=== PATIENT | female | born 1945 | race Caucasian/White ===

== ENCOUNTER → 2020-09-15 12:33 | Outpatient (BNVA) | payer MEDICARE, OTHER, SELFPAY | PROVIDERS: PCP Internal Medicine; Referring Provider Internal Medicine; Visit Provider Internal Medicine Cardiovascular Disease | DX: R55 Syncope and collapse (principal); R00.1 Bradycardia, unspecified | CPT/HCPCS: 93005; 99212 ==

== ENCOUNTER → 2020-11-24 12:54 | Outpatient (BNVA) | payer MEDICARE, OTHER, SELFPAY | PROVIDERS: PCP Internal Medicine; Visit Provider Hospitalist | DX: R91.8 Other nonspecific abnormal finding of lung field (principal); K59.00 Constipation, unspecified | CPT/HCPCS: 99212 ==

== ENCOUNTER → 2021-11-25 11:03 | Outpatient (BNVA) | payer MEDICARE, OTHER, SELFPAY | PROVIDERS: PCP Internal Medicine; Visit Provider Hospitalist | DX: R91.8 Other nonspecific abnormal finding of lung field (principal); L72.9 Follicular cyst of the skin and subcutaneous tissue, unspecified; K44.9 Diaphragmatic hernia without obstruction or gangrene | CPT/HCPCS: 99212 ==

== ENCOUNTER → 2022-09-29 10:33 | Outpatient (BNVA) | payer MEDICARE, OTHER, SELFPAY | PROVIDERS: PCP Internal Medicine; Referring Provider Internal Medicine; Visit Provider Internal Medicine Cardiovascular Disease | DX: R00.1 Bradycardia, unspecified (principal); R55 Syncope and collapse; E78.5 Hyperlipidemia, unspecified | CPT/HCPCS: 93005; 99212 ==

== ENCOUNTER 2022-12-01 11:21 | Outpatient (AMB) | payer MEDICARE, OTHER, SELFPAY ==
--- NOTE | 2022-12-01 11:39 | A.OFFVIS_ITS ---
Intake Vital Signs 12/01/22 11:41 Height 5 ft 3 in Weight 145 lb BMI 25.7 Pulse 63 Pulse Source Pulse Oximeter Pulse Oximetry (%) 97 Oxygen Delivery Method Room Air Intake Visit Reasons: COPD Allergies morphine Allergy (Severe, Verified 12/01/22 11:40) Vomiting Sulfa (Sulfonamide Antibiotics) Allergy (Severe, Verified 12/01/22 11:40) hives aspirin [ASA] Allergy (Intermediate, Verified 12/01/22 11:40) UPSET STOMACH Thimerosal Allergy (Severe, Uncoded 12/01/22 11:40) Vomiting HPI HPI Comments History of Present Illness Details The patient is a 77 y/o woman with underlying pulmonary nodules. Apparently back in May 2019 she was having significant respiratory complaints including cough shortness of breath chest pain. Looking back she thinks she had COVID-19 infection. She did have a CT scan of the chest PE protocol which was negative for any airspace disease. But, did did mention that the right lower lobe pulmonary nodule was slightly increasing size measuring 8 x 10 mm. They recommended repeating the PET scan. She had a repeat CT scan October 16, 2019 demonstrating stability of the right lower lobe pulmonary nodule. We did go back to her previous CT scan even her last PET scan at [facility]. The CT scans in the PET scan personally reviewed by me. The patient to be some waxing waning from the size of the right lower lobe nodular density. It may be how was cut as it is not completely circumferential. That being said has not shown any significant change in size. Also the PET scan was reassuring with no FDG activity. The patient also has a small new pulmonary nodule that will continue to need follow-up. 11/24/2020 the patient is here for a pulmonary follow-up visit. She has been having significant issues lately. Time issues with a disc herniation that required surgical intervention but then she had every herniation and had to have repeat surgery. Now she has been with significant issues after having a hernia surgery done resulting significant constipation irregular bowels. The therefore she is struggling with F. Due to the significant constipation she developed hemorrhoids. She will be following up with her new surgeon regarding the internal hemorrhoids. Her breathing overall has been stable. We did review her recent CT scan of the chest which demonstrated multiple subsolid and ground-glass nodular densities. Patient understands that these nodules have to be monitor for longer period of time based on their description. At this point a CT scan stable will follow-up with a CT in next year unless she develops any worsening respiratory symptoms or any other concerning symptoms of warranted earlier evaluation. The patient is now requiring a respiratory medicines at this time. 11/25/2021 the patient is here for pulmonary follow-up visit. The patient has had a very eventful year. After I saw her back in November of 2020 the patient required surgery for fissures. Subsequently after that she was diagnosed with breast cancer during the pandemic. She did undergo a left breast mastectomy. They would into the right because of the pandemic could have elective surgery. She also had a lymph node dissection that was negative for any spread. She was placed on hormonal therapy but she cannot tolerated. After that the patient developed significant paresthesias and was found to have cervical disc disease. She did require neurosurgical intervention. She underwent surgery without any apparent complications. Now she is recovering from that. Overall she is doing well from a respiratory status. Denies any shortness of breath or cough. She did undergo a repeat CT scan of the chest. It appears that she has both ground- glass nodular densities in solid nodular densities. When compared to last year's the CT scan is stable which is reassuring. In view of the ground-glass nodules which she continue following the nodules further specially now with a history of breast cancer. She also was concerned about a little tag that she has on her right axilla. I did evaluate the CT scan of the chest and did not appear to have any significant lymphadenopathy in the right axilla. She does have a very so much subcutaneous Pea size density which appears to be more worse base uses. If the patient's sees that increase or get more indurated patient is to follow-up with her primary care for her oncologist quickly. She is scheduled to have a mammography sometime in the late fall. 12/01/2022 the the patient is here for pulmonary follow-up visit. Overall the patient is well. Since we last spoke she was diagnosed with recurrent breast cancer and required a mastectomy. She has not on any hormonal or chemotherapy. She is using natural medicine. Respiratory umanzor she is doing well she continues to exercise regularly. She finally recovered from her surgery so she is getting some her energy back. The patient did have a CT scan of the chest in October 2022 and we personally reviewed the CT scan and compared to the CT scan she had from 2021. She does have intermediate sized pulmonary nodules some calcified and some noncalcified. There unchanged for the most part when compared to 202 although the 1 on the left appears to be just a little bit more opaque although same size. Patient will require repeat CT scan in a year's time. PENDING SALE TO [facility] Medical History Constipation Hand paresthesia Hiatal hernia Hyperlipidemia Pulmonary nodule Pulmonary nodules Vasovagal syncope Social History Patient Tobacco Use Status: Never used Tobacco Review of Systems Const Denies night sweats ENT Denies change in voice, Denies lip swelling, Denies mouth pain, Reports nasal congestion, Reports nasal discharge, Reports neck pain and Denies tongue swelling Card Denies chest pain Resp Denies cough GI Reports change in stool character and Reports constipation Musc Denies no additional complaints, Reports back pain, Reports neck pain, Reports numbness and Reports tingling Neuro Denies Neuro-related abnormal movements, Reports numbness, Reports tingling and Reports paresthesias Psych Denies no additional complaints Alan/Lymph Denies easy bleeding and Denies lymphadenopathy Aller/Immun Denies lip swelling and Denies tongue swelling Physical Exam Vital Signs: Last Vital Signs Pulse 63 12/01/22 11:41 Pulse Ox 97 12/01/22 11:41 Oxygen Delivery Method Room Air 12/01/22 11:41 BMI result Body Mass Index 25.7 Const General: alert Neck Neck: Yes normal visual inspection, Yes full ROM and Yes no lymphadenopathy Chest Chest palpation & inspection: normal inspection of the chest Resp Auscultation: diminished lung sounds Cardio Rate: regular rate Rhythm: regular rhythm Heart sounds: S1 normal heart sound present and S2 normal heart sound present GI Palpation (GI): Soft to palpation and nontender Auscultation: normal bowel sounds Skin General skin exam: rashes and/or lesions noted Extrem General: Yes no clubbing, cyanosis or edema Assessment & Plan Assessment & Plan (1) Pulmonary nodules: Code(s): R91.8 - Other nonspecific abnormal finding of lung field (2) Subcutaneous cyst: Code(s): L72.9 - Follicular cyst of the skin and subcutaneous tissue, unspecified (3) Hiatal hernia: Comment: noted on CT Code(s): K44.9 - Diaphragmatic hernia without obstruction or gangrene Plan Repeat CT chest 1 yr reflux diet sleep elevated F/U 1 yr Orders: Orders CT chest wo IV con 10/03/23 R91.8 - Other nonspecific abnormal finding of lung field Coding Level of Care Code Est Pt Level 4 (29683) Diagnoses Pulmonary nodules R91.8 Subcutaneous cyst L72.9 Hiatal hernia K44.9 Time Spent (min) 17
[2022-12-01 11:41] VITALS: PULSE 63; O2SAT 97; BMI 25.7
== END 2022-12-01 11:58 | disposition home or self-care (01) ==
PROVIDERS: PCP Internal Medicine; Visit Provider Hospitalist
DX: R91.8 Other nonspecific abnormal finding of lung field (principal); L72.9 Follicular cyst of the skin and subcutaneous tissue, unspecified; K44.9 Diaphragmatic hernia without obstruction or gangrene
CPT/HCPCS: 99214

== ENCOUNTER → 2022-12-01 11:21 | Outpatient (BNVA) | payer MEDICARE, OTHER, SELFPAY | PROVIDERS: PCP Internal Medicine; Visit Provider Hospitalist | DX: J44.9 Chronic obstructive pulmonary disease, unspecified (principal); R91.8 Other nonspecific abnormal finding of lung field; L72.9 Follicular cyst of the skin and subcutaneous tissue, unspecified; K44.9 Diaphragmatic hernia without obstruction or gangrene | CPT/HCPCS: 99212 ==

== ENCOUNTER 2024-01-30 10:16 | Outpatient (AMB) | payer MEDICARE, OTHER, SELFPAY ==
--- NOTE | 2024-01-30 10:24 | MHC.OFFVIS ---
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 Apparently back in May 2019 she was having significant respiratory complaints including cough shortness of breath chest pain. Looking back she thinks she had COVID-19 infection. She did have a CT scan of the chest PE protocol which was negative for any airspace disease. But, did did mention that the right lower lobe pulmonary nodule was slightly increasing size measuring 8 x 10 mm. They recommended repeating the PET scan. She had a repeat CT scan October 16, 2019 demonstrating stability of the right lower lobe pulmonary nodule. We did go back to her previous CT scan even her last PET scan at [facility]. The CT scans in the PET scan personally reviewed by me. The patient to be some waxing waning from the size of the right lower lobe nodular density. It may be how was cut as it is not completely circumferential. That being said has not shown any significant change in size. Also the PET scan was reassuring with no FDG activity. The patient also has a small new pulmonary nodule that will continue to need follow-up. 11/24/2020 the patient is here for a pulmonary follow-up visit. She has been having significant issues lately. Time issues with a disc herniation that required surgical intervention but then she had every herniation and had to have repeat surgery. Now she has been with significant issues after having a hernia surgery done resulting significant constipation irregular bowels. The therefore she is struggling with F. Due to the significant constipation she developed hemorrhoids. She will be following up with her new surgeon regarding the internal hemorrhoids. Her breathing overall has been stable. We did review her recent CT scan of the chest which demonstrated multiple subsolid and ground-glass nodular densities. Patient understands that these nodules have to be monitor for longer period of time based on their description. At this point a CT scan stable will follow-up with a CT in next year unless she develops any worsening respiratory symptoms or any other concerning symptoms of warranted earlier evaluation. The patient is now requiring a respiratory medicines at this time. 11/25/2021 the patient is here for pulmonary follow-up visit. The patient has had a very eventful year. After I saw her back in November of 2020 the patient required surgery for fissures. Subsequently after that she was diagnosed with breast cancer during the pandemic. She did undergo a left breast mastectomy. They would into the right because of the pandemic could have elective surgery. She also had a lymph node dissection that was negative for any spread. She was placed on hormonal therapy but she cannot tolerated. After that the patient developed significant paresthesias and was found to have cervical disc disease. She did require neurosurgical intervention. She underwent surgery without any apparent complications. Now she is recovering from that. Overall she is doing well from a respiratory status. Denies any shortness of breath or cough. She did undergo a repeat CT scan of the chest. It appears that she has both ground-glass nodular densities in solid nodular densities. When compared to last year's the CT scan is stable which is reassuring. In view of the ground-glass nodules which she continue following the nodules further specially now with a history of breast cancer. She also was concerned about a little tag that she has on her right axilla. I did evaluate the CT scan of the chest and did not appear to have any significant lymphadenopathy in the right axilla. She does have a very so much subcutaneous Pea size density which appears to be more worse base uses. If the patient's sees that increase or get more indurated patient is to follow-up with her primary care for her oncologist quickly. She is scheduled to have a mammography sometime in the late fall. 12/01/2022 the the patient is here for pulmonary follow-up visit. Overall the patient is well. Since we last spoke she was diagnosed with recurrent breast cancer and required a mastectomy. She has not on any hormonal or chemotherapy. She is using natural medicine. Respiratory umanzor she is doing well she continues to exercise regularly. She finally recovered from her surgery so she is getting some her energy back. The patient did have a CT scan of the chest in October 2022 and we personally reviewed the CT scan and compared to the CT scan she had from 2021. She does have intermediate sized pulmonary nodules some calcified and some noncalcified. There unchanged for the most part when compared to 2021 although the 1 on the left appears to be just a little bit more opaque although same size. Patient will require repeat CT scan in a year's time. 01/30/2024 the patient is here for a pulmonary follow-up visit. Overall the patient is doing well. Her respiratory symptoms have been stable. She is recovering from shoulder surgery. Denies any worsening shortness of breath or chest tightness. She does have epigastric discomfort and she does get some reflux symptoms. We did look at her CT scan of the chest demonstrating the hiatal hernia. We did talk about her . She can not take a lot of medications at this time although I do believe Pepcid will be okay based on her medical issues. She is having a lot of reflux symptoms and she should take her medications specially since she is following a reflux diet. As far as changes in her diet she is going to stop the seltzer water and just have regular water instead. Hopefully the Pepcid helps her symptoms. We did review her pulmonary nodules. They appear to be stable when compared to last year. There still about a cm in size which are intermediate and she does have the reason history of breast cancer. Will follow-up with a repeat CT scan in a year's time. If the patient develops any worsening symptoms prior to that she will call for an earlier assessment. [facility] Medical History Constipation Hand paresthesia Hiatal hernia Hyperlipidemia Pulmonary nodule Pulmonary nodules Vasovagal syncope Social History Patient Tobacco Use Status: Never used Tobacco Review of Systems Const Denies night sweats ENT Denies change in voice, Denies lip swelling, Denies mouth pain, Reports nasal congestion, Reports nasal discharge, Reports neck pain and Denies tongue swelling Card Denies chest pain Resp Denies cough GI Reports change in stool character and Reports constipation Musc Denies no additional complaints, Reports back pain, Reports neck pain, Reports numbness and Reports tingling Neuro Denies Neuro-related abnormal movements, Reports numbness, Reports tingling and Reports paresthesias Psych Denies no additional complaints Alan/Lymph Denies easy bleeding and Denies lymphadenopathy Aller/Immun Denies lip swelling and Denies tongue swelling Physical Exam Vital Signs: Last Vital Signs Pulse 55 01/30/24 10:26 BP 124/70 01/30/24 10:26 Pulse Ox 98 01/30/24 10:26 Oxygen Delivery Method Room Air 01/30/24 10:26 BMI result Body Mass Index 26.4 Const General: alert Neck Neck: Yes normal visual inspection, Yes full ROM and Yes no lymphadenopathy Chest Chest palpation & inspection: normal inspection of the chest Resp Auscultation: diminished lung sounds Cardio Rate: regular rate Rhythm: regular rhythm Heart sounds: S1 normal heart sound present and S2 normal heart sound present GI Palpation (GI): Soft to palpation and nontender Auscultation: normal bowel sounds Skin General skin exam: rashes and/or lesions noted Extrem General: Yes no clubbing, cyanosis or edema Assessment & Plan Assessment & Plan (1) Pulmonary nodules: Code(s): R91.8 - Other nonspecific abnormal finding of lung field Category: Medical (2) Hiatal hernia: Comment: noted on CT Code(s): K44.9 - Diaphragmatic hernia without obstruction or gangrene Category: Medical Plan Repeat CT chest 1 yr reflux diet sleep elevated trial Pepcid should f/u with GI F/U 1 yr Orders: Orders CT chest wo IV con 1 Year R91.8 - Other nonspecific abnormal finding of lung field Medications: New famotidine (Pepcid) 40 mg PO DAILY 30 days 30 tabs 11RF Coding Level of Care Code Est Pt Level 4 (22557) Diagnoses Pulmonary nodules R91.8 Hiatal hernia K44.9 Time Spent (min) 17
[2024-01-30 10:26] VITALS: BP 124/70; PULSE 55; O2SAT 98; BMI 26.4
== END 2024-01-30 10:58 | disposition home or self-care (01) ==
PROVIDERS: PCP Internal Medicine; Visit Provider Hospitalist
DX: R91.8 Other nonspecific abnormal finding of lung field (principal); K44.9 Diaphragmatic hernia without obstruction or gangrene
CPT/HCPCS: 99214

== ENCOUNTER → 2024-01-30 10:16 | Outpatient (BNVA) | payer MEDICARE, OTHER, SELFPAY | PROVIDERS: PCP Internal Medicine; Visit Provider Hospitalist | DX: R91.8 Other nonspecific abnormal finding of lung field (principal); K44.9 Diaphragmatic hernia without obstruction or gangrene | CPT/HCPCS: 99212 ==

== ENCOUNTER 2024-10-04 15:03 | Outpatient (AMB) | payer MEDICARE, OTHER, SELFPAY ==
--- OUTSIDE RECORDS SUMMARY | 2024-10-04 15:06 | XMS_ITS | Patient Health Record ---
Author Organization [facility] [place] Address [address] [place] [address] Care Team Providers Care Puppy Sitter Name Role Phone Keaton Leigh MD Primary Care Provider Unavail able Black, Cristine Unavailable [phone] Allergies Allergen (clinical drug ingredient) Drug/Non Drug Allergy documented on EMR Reaction Allergy Type Onset Date Status ibuprofen Advil Unknown Drug Allergy Active Aleve Unknown Drug Allergy Active Motrin Unknown Drug Allergy Active sulfa Unknown Drug Allergy Active acetaminophen / oxycodone Percocet Unknown Drug Allergy Active Reason For Referral No Information Medications Medication SIG (Take, Route, Frequency, Duration) Notes Start Date End Date Status Atenolol Active ibuprofen Active Physical Therapy . . . 2-3x/week; Durat ion: 3-4 weeks Active LORazepam Active Azithromycin Not-Robin ing Levothyroxine Sodium Active Percocet 5-325 MG 1 tablet as needed O rally every 6 hrs 01/21/2014 Not-Taking Physical Therapy . . . 2-3x/week; Durat ion: 3-4 weeks 03/18/2014 Active Vicodin Active Tylenol Not-Taking Laxative Active Colace Active DHEA Active Aspir-81 Active Social History Tobacco use other than smoking: Question Answer Notes Are you an other tobacco user? No Problems Problem Type SNOMED Code ICD Code Onset Dates Problem Status W/U Status Risk Notes Problem Pain in limb (16767673) Pain in Limb (729.5) Active confirmed Problem Edema (54498400) Edema (782.3) Active confirmed Problem Hallux valgus (248547999) Hallux Valgus (735.0) Active confirmed Problem Hammer toe (402940146) Hammer toe (735.4) Active confirmed Problem Stress fracture (52282800) Stress fx (733.94) Active confirmed Plan Of Treatment Pending Test Test Name Order Date Tc99 3 phase Bone Scan 12/11/2013 X ray : Foot, left 3V 02/18/2014 26036, [id number]/INJECT, JOINT/BURSA 0 12/17/2013 Insurance Providers Payer Name Payer Address Payer Phone Subscriber Number Group Number Insured Name Patient Relationship to Insured Coverage Start Date Coverage End Date Medicare National [employer] [address] [place] [id number] Tanesha Dejesus Self - patient is the insured Gervais Grant [address] [place] [phone] [id number] Tanesha Dejesus Self - patient is the insured Medical (General) History Medical History History ICD Code Arthritis Back,Hip,and Knee pain Cancer Hiatal hernia Osteoporosis Reflux Thyroid cancer Measles Mumps Chicken pox Surgical History Surgery Date(Month/Year) tonsils 195 D&C 1965,1968,02/1975,1975 hernia repair 03/1975,10/1975,,05/2010 partial hysterectomy 07/1975 hysterectomy 02/1978 gallbladder 09/1979 hemorrhoidectomy 11/1981,10/2008 right foot neuroma removal 11/1985 myelogram 08/1987 thyroidectomy 06/1994 partial bilateral mastectomy 05/1999 right shoulder rotater cuff 08/2004 rectocel 01/2009 colon resection/prolapsed rectum 11/2009 incision repair 02/2010 panniculectomy 05/2010 Bun/HT/Tent/Caps left 02/13/2014 Hospitalization History Reason Date(Month/Year) [facility] bunion& HT 02/13/14
--- OUTSIDE RECORDS SUMMARY | 2024-10-04 15:07 | XMS_ITS | Clinical Summary ---
Author Organization [facility] Address [address] [place] [address] Care Team Providers Care Abrasive Sawyer Name Role Phone Keaton Leigh MD Primary Care Provider + [phone] Social History Tobacco Use Types Packs/Day Years Used Date Smoking Tobacco: Never Assessed Sex and Gender Information Value Date Recorded Sex Assigned at Not on file Gender Identity Not on file Sexual Orientation Not on file Job Start Date Occupation Industry Not on file Not on file Not on file Plan of Treatment Health Maintenance Due Date Last Done Comments Hepatitis C Screening 1945 COVID-19 Vaccine (#1) 02/06/1946 Depression Screening 1958 Preventative Health Evaluation 1964 DTap / Tdap / Td (1 - Tdap) 1965 Shingrix-Zoster Vaccine (1 of 2) 1996 Fall Risk Assessment 08/07/2011 Osteoporosis Screening (DEXA Scan) 08/07/2011 Pneumococcal Vaccine (1 of 1 - PCV) 08/07/2011 RSV Adult > 60+ Yrs or Pregn ant (1 - 1-dose 75+ series) 2021 Influenza Vaccine (Season Ended) 2024 Hepatitis B Vaccines Aged Out No long er eligible based on patient's age to complete this topic RSV Ped < 20 months Aged Out No longe r eligible based on patient's age to complete this topic Care Teams Abrasive Sawyer Relationship Specialty Start Date End Date Keaton Leigh MD [address] [address] PCP - General Internal Medicine 02/04/20
--- OUTSIDE RECORDS SUMMARY | 2024-10-04 15:07 | XMS_ITS | Data Portability ---
Author Organization [facility] Address [address] [place] [address] Care Team Providers Care Commutator Repairer Name Role Phone GIA ALVARADO Primary Care Provider Assessment No assessment recorded. Plan of Treatment Reminders Order Date Submit Date Provider Last Modified By Organization Details Last Modified Time Details Appointments None recorded. Lab None recorded. Referral None recorded. Procedures None recorded. Surgeries None recorded. Imaging XR, shoulder, 2 or more view - R rTSA 3 view 216 2024 025 [facility], [address], [address], [place], [address], 5 12:38:22 XR, shoulder, 2 or more view - Right shoulder rTSA sx 3 view rm 214 2023 024 [facility], [address], [address], [place], [address], 4 10:55:55 XR, shoulder, 2 or more view - Right rTSA 3 view 214 2023 024 [facility] [address], [address], [place], [address], 4 16:03:42 Medication Orders None recorded. Patient TargetsNo targets recorded. Patient InstructionsNo instructions recorded. Reason for Referral None Reported. Results Created Date Observation Date Name Description Value Unit Range Abnormal Flag Note LastModifiedBy Organization Detail LastModifiedTime 11/25/1911/25/2023 XR, shoul taty, 2 or more view [email or web address] ?Encry pted=s hAaTro YD8dLq bEUv6g %2BXZw aYqtaq 0bqfl% 2Fg9IQ a4ajBk vP9nXo QUaueC m3YtLR FvZlgJ JJ8mAn HZtai3 1o9586 AC0Kra X%2BEU aTeUC8 mr84%3 D INTERFACE [facility] [address], [place], [address], 11/25/2023 14:11:36 11/25/19 24 11/25/2023 XR, amarilys taty, 2 or more view http:/ [email or web address] ?Encry pted=s hAaTro YD8dLq bEUv6g %2BXZw aYqtaq 0bqfl% 2Fg9IQ a4ajBk vP9nXo QUaueC m3YtLR FvZl [facility] 8l2119 AC0Kra X%2BEU aTeUC8 mr84%3 D INTERFACE [facility] [address], [place], [address], 11/25/2023 14:11:37 01/09/20 24 01/09/2024 XRamarilys, 2 or more view [email or web address]:/ [email or web address] ?Encry pted=s hAaTro YD8dLq bEUv6g %2BXZw aYqtaq 0bqfl% 2Fg9IQ a4ajBk vP9nXo QUaueC m3YtLR FvZlg JJ8[place] HZtai3 1b2609 AC0Kqa nWDUaS nKiQtr MwF INTERFACE [facility] [address], [place], [address], 01/09/2024 14:53:44 01/09/20 24 01/09/2024 XR, amarilys posey, 2 or more view http:/ [email or web address] ?Encry pted=s hAaTro YD8dLq bEUv6g %2BXZw aYqtaq 0bqfl% 2Fg9IQ a4ajBk vP9nXo QUaueC m3YtLR FvZlgJ JJ8mAn HZtai3 3l1010 AC0Kqa nWDUaS nKiQtr MwF INTERFACE [facility] [address], [place], [address], 01/09/2024 14:53:46 08/14/19 25 08/13/2024 XR, shoul taty, 2 or more view [email or web address] ?Encry pted=s hAaTro YD8dLq bEUv6g %2BXZw aYqtaq 0bqfl% 2Fg9IQ a4ajBk vP9nXo QUaueC m3YtLR FvZl JJ8[place] HZtai3 8l0265 AC0Kla nyEUaq kKiQtr MwF INTERFACE [facility] [address], [place], [address], 08/13/2024 13:05:36 08/14/19 25 08/13/2024 XR, shoul taty, 2 or more view http:/ [email or web address] ?Encry pted=s hAaTro YD8dLq bEUv6g %2BXZw aYqtaq 0bqfl% 2Fg9IQ a4ajBk vP9nXo QUaueC m3YtLR FvZlg JJ8mAn HZtai3 8d9317 AC0Kla nyEUaq kKiQtr MwF INTERFACE [facility] [address], [place], [address], 08/13/2024 13:05:37 Result Notes Documentation Provider Name and Address Organization Details Recorded Time Xr, Shoulder, 2 Or More View : [email or web address] Encrypted=qfMwJonOV6uRswJ Uv6g%6PTMkwNsrlr6raif%2Fg 0VKv0apIhzR3tCcRFotbYk2Ig SKEzMnaNLE0fEiYOssj96q431 6CM1CyqS%4TQUnQpQF2lv89%3 D Not Available [facility] 11/25/2023 14:11:36 Xr, Shoulder, 2 Or More View : [email or web address] Encrypted=zeRwYsoJU3rNseO Uv6g%1JFTnsVqins2wozr%2Fg 2JUg7lwOyjP6zTaYKfoqXs3Al YYFmVecITE8tIgCFlko13x229 3AZ7QfeA%2FIYhXkMI8yb58%3 D Not Available [facility] 11/25/2023 14:11:38 Xr, Shoulder, 2 Or More View : [email or web address] Encrypted=scSsDhyGC5aQeqJ Uv6g%7SWTipRwxfs2rqyc%2Fg 3MJh9pzMbeB9yWzGRslfQt7Xv JJErDvrOGP6zYfKWjjt26m245 5NO9VpaxHELjBjPeRzhEbG Not Available [facility] 01/09/2024 14:53: 44 Xr, Shoulder, 2 Or More View : [email or web address]? Encrypted=wdOgUnoMB1zNnjK Uv6g%3VIAztBrbur1bqrm%2Fg 3ZRy4mpFyyS0jGhDIvwfOr1Sm IMWvSgqARI4iSjLOjyh13x980 3XF5WhrmDHAtVwWdVftTeW Not Available [facility] 01/09/2024 14:53: 47 Xr, Shoulder, 2 Or More View : [email or web address] Encrypted=lrQpOmgAA2eBurM Uv6g%9LHSvcSotnk4tgfz%2Fg 9ZCo0nnYgjD0gAqLLfsdQz5Jj SHBmFweTLQ2qJgMYwtv16z996 0JN3QxlnaTWkprEqUvxPrV Not Available [facility] 08/13/2024 13:05: 36 Xr, Shoulder, 2 Or More View : [email or web address] Encrypted=gmFtXuuZA2cMezS Uv6g%7ILLfkZjrox4zlst%2Fg 9GMs5uwKrtU6sRzIStmhFt8Rm TCBwInvEUQ6yOoTYkej12k595 6XB1OhycxPLdleQdBayUqG Not Available [facility] 08/13/2024 13:05: 37 Problems Name Problem SNOMED Code Status Onset Date Resolution Date Notes Provider Name and Address Organization Details Recorded Time No complaints 330097716 Active Status : 'I'; Not Available [facility] 09:10:30 Problem Notes None recorded. 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 Procedure Notes None recorded. Medical Equipment None Reported. Allergies Allergen ID Allergen Name Allergen Category Reaction Reaction Severity Criticality Documentation Date Start Date Code Code System Note Provider Name and Address Organization Details Recorded Time 672283 cow milk allergeni c extract food,medi cation Not available Not available Not available 07/18/2023 36081 5 RxNorm LISBETH KELLER [facility] 4 16:43:01 773796 Substance with sulfonami de structure and antibacte rial mechanism of action (substanc e) medicatio n Not available Not available Not available 07/18/2023 95194 8003 SNOMED LISBETH KELLER [facility] 4 16:43:04 811678 scallop allergeni c extract food Not available Not available Not available 07/18/2023 [address] [facility] 4 16:43:13 083601 morphine medicatio n Not available Not available Not available 07/18/2023 7052 RxNorm LISBETH beck [place] [facility] [place] 16:43:17 Medications Name Sig Start Date Stop Date Status Note LastModified by Organization Details LastModified Time celecoxib 200 mg capsule TAKE 1 CAPSULE BY MOUTH EVERY DAY active Not Available Not Available No t Available aspirin 325 mg tablet TAKE 1 TABLET BY MOUTH EVERY DAY FOR 14 DAYS active Not Available Not Available No t Available ibuprofen 800 mg tablet TAKE 1 TABLET BY MOUTH 3 TIMES A DAY NEEDED FOR PAIN active Not Available Not Available No t Available famotidine 40 mg tablet TAKE 1 TABLET BY MOUTH EVERY DAY active Not Available Not Available No t Available acetaminoph en 500 mg tablet TAKE 2 TABLETS BY MOUTH 3 TIMES A DAY active Not Available Not Available No t Available amoxicillin 500 mg tablet TAKE 4 TABLETS 1 HOUR BEFORE PROCEDURE 11/24 completed Not Available Not Available Not Available ketorolac 0.5 % eye drops PLEASE SEE ATTACHED FOR DETAILED DIRECTION S active Not Available Not Available No t Available cefadroxil 500 mg capsule TAKE 4 PILLS ONE HOUR PRIOR TO FOOT SURGERY DIRECTED active Not Available Not Available No t Available levothyroxi ne 100 mcg tablet TAKE 1 TABLET BY MOUTH 6 DAYS A WEEK AND SKIP THE 7TH DAY active Not Available Not Available No t Available amoxicillin 875 mg tablet TAKE 1 TABLET BY MOUTH TWICE A DAY 11/24 completed Not Available Not Available Not Available hydromorpho ne 2 mg tablet Take 1 tablet every 4 hours by oral route. 08/17 completed Not Available Not Available Not Available dexamethaso ne 1 mg tablet TAKE 1 TABLET BY MOUTH AT 11PM active Not Available Not Available No t Available cephalexin 500 mg capsule TAKE 4 CAPSULES 30 MIN PRIOR TO SURGERY 08/13 completed Not Available Not Available Not Available docusate sodium 100 mg capsule TAKE 1 CAPSULE BY MOUTH EVERY DAY NEEDED 08/13 completed Not Available Not Available Not Available gabapentin 300 mg capsule TAKE 1 CAPSULE BY MOUTH THREE TIMES A DAY active Not Available Not Available No t Available gabapentin 100 mg capsule TAKE 1 CAPSULE BY MOUTH THREE TIMES A DAY 08/13 completed Not Available Not Available Not Available hydromorpho ne 4 mg tablet Take 0.5 tablets every 4 hours by oral route as needed for 7 days, for severe pain. 08/22 completed Not Available Not Available Not Available atenolol 50 mg tablet TAKE 1/2 TABLET BY MOUTH EVERY DAY active Not Available Not Available No t Available hydromorpho ne 1 mg/mL oral liquid TAKE 2 ML BY MOUTH EVERY 4 HOURS NEEDED FOR SEVERE PAIN 08/13 completed Not Available Not Available Not Available Vitals Date Recorded Body height Body mass index (BMI) Body weight Provider Name and Address Organization Details Last Updated DateTime 08/13/2024 157.48 cm 26.9 kg/m2 45663.08 g LISBETH KELLER [facility] 08/13/2024 12:58:13 Date Recorded Body height Body mass index (BMI) Body weight Provider Name and Address Organization Details Last Updated DateTime 11/25/2023 157.48 cm 26.9 kg/m2 36142.08 g LISBETH KELLER [facility] 11/25/2023 13:59:33 Date Recorded Body height Body mass index (BMI) Body weight Provider Name and Address Organization Details Last Updated DateTime 12/12/2023 157.48 cm 26.9 kg/m2 08648.08 g LISBETH KELLER [facility] 12/12/2023 15:40:26 Date Recorded Body height Body mass index (BMI) Body weight Provider Name and Address Organization Details Last Updated DateTime 01/09/2024 157.48 cm 26.9 kg/m2 53506.08 g LISBETH KELLER [facility] 01/09/2024 14:47:12 Date Recorded Body height Body mass index (BMI) Body weight Provider Name and Address Organization Details Last Updated DateTime 02/20/2024 157.48 cm 26.9 kg/m2 76712.08 g LISBETH KELLER [facility] 02/20/2024 15:27:49 Social History None recorded. Functional Status None recorded. Mental Status None recorded. Family History Nothing Reported. Medical History Condition Response Allergies/Hayfever N Coronary Artery Disease N Anxiety/Depression N Breathing or lung disorders N Emphysema N Nerve Disorders N Thyroid Problems Y COPD N Pacemaker N Anemia N Kidney/Bladder Problems N Vascular Disease N Heart Trouble N Heart Attack (MS) N Gastrointestinal Disease Y Cholesterol N Diabetes N Autoimmune disease N Inflammatory Joint disease N Bleeding Disorder N Orthotics N Arthritis Y Seizures/Epilepsy N Blood Clot N AIDS/HIV N Congestive Heart Failure (CHF) N Acid Reflux (GERD) N Cancer Y Stroke N Asthma N Circulation Problems N Peripheral Vascular Disease N Sleep Apnea N Hepatitis N Heart Disease N Rheumatoid Arthritis N Arrhythmia N Pulmonary Embolism N Headaches N Fibromyalgia N Hypertension N Osteoporosis N Gynecological HistoryNo gynecological history recorded. Obstetrics History GPAL:G 0 P 0 0 0 0 Past Encounters Encounter ID Performer Location Encounter Start Date Encounter Closed Date Diagnosis/Indication Diagnosis SNOMED-CT Code Diagnosis ICD10 Code Diagnosis Note [id number] MD Jordyn Hull [address] [place] [address] [address] [place] [address] 07/20/2023 14:00:39 08/01/2023 07:57:21 Rupture of rotator cuff of right shoulder 5718715772 8460406 M75.121 Osteoarthr itis of right glenohumeral joint 7474852383 043799 M19.055 [id number] MD Jordyn Hull [address] [place] [address] [address] [place] [address] 09/05/2023 12:55:01 09/14/2023 07:47:07 History of reverse prosthetic total arthroplasty of right shoulder 2593539167 7606741 Z96.302 [id number] LIDIA Jones [address] [place] [address] [address] [place] [address] 10/10/2023 12:51:06 10/10/2023 13:40:19 Postoperative care 436445137 Z48.89 [id number] MD Jordyn Hull [address] [place] [address] [address] [place] [address] 11/25/2023 13:43:35 12/20/2023 16:03:42 History of reverse prosthetic total arthroplasty of right shoulder 5696335742 5301910 Z96.275 [id number] MD Jordyn Hull [address] [place] [address] [address] [place] [address] 12/12/2023 14:46:28 01/03/2024 15:44:52 History of reverse prosthetic total arthroplasty of right shoulder 9626539007 5148476 Z96.806 [id number] MD Jordyn Hull [address] [place] [address] 01/09/2024 14:07:08 02/03/2024 10:55:55 History of reverse prosthetic total arthroplasty of right shoulder 1870123277 6265727 Z96.545 [id number] MD Jordyn Hull [address] [place] [address] 02/20/2024 14:43:47 03/21/2024 08:26:54 History of artificial joint 505079579 Z96.660 [id number] Kristina Lau MD [facility] [address] [place] [address] 08/13/2024 12:42:41 08/21/2024 12:38:22 History of reverse prosthetic total arthroplasty of right shoulder 6212419208 8659943 Z96.611 Health Concerns Section Related Observation LastModified by Organization Detai ls LastModified Time None Recorded Concern Status LastModified by Organization Details LastModified Time None Recorded Advance Directives Directive None Recorded Payers Insurance Date Sequence Insurance Name Policy Number Policy Dunham Covered Member ID Dunham Member ID Guarantor Name 08/13/2024 1 [place] [employer]MENT [employer] Tanesha Dejesus [id number] Tanesha Dejesus 08/21/2024 2 [employer] (MEDICARE SUPPLEMENT) Tanesha Dejesus [id number] Tanesha Dejesus 08/10/2024 [place] - SPECIALITY CLAIMS (MEDICARE DME REGION A) Tanesha Dejesus [id number] 1 Tanesha Dejesus 10/28/2023 2 UNSPECIFIED REMIT PAYOR Tanesha Dejesus Notes Date Note Type Note Provider Name and Address Organization Details Recorded Time 11/25/2023 text/html Surgery: Right shoulder bioRSA, 08/23/2023 Interval History: Tanesha returns today in follow-up now 3 months out from surgery as above. Comes in today for slightly earlier than expected visit citing new pain in her shoulder during PT on 11/20/2023. Was doing some stretching with her therapist when she felt a sudden pain in the shoulder. This pain is felt primarily over the anterior aspect of the shoulder. She has pain with any motion of the arm, or even elbow flexion. Denies crepitus. No issues with her incision. No numbness or tingling in the arm or hand. Past family, medical, social history and review of systems have been reviewed and updated on the medical history sheet saved to the patient's chart. A 12-point review of systems is negative x12 except as noted above and/or on the medical history sheet. Examination: Pleasant 78-year-old woman in no acute distress. On exam of the Right upper extremity, incision is healing nicely. Mild tenderness to palpation over the superior shoulder/acromion, more so over the conjoined tendon, lesser tuberosity. Able to maintain the shoulder abducted against gravity with mild discomfort difficulty. Does not tolerate active range of motion of the shoulder today. Passive external rotation is to 30 degrees before we have to stop due to discomfort. Passive forward elevation to at least 90 degrees with minimal pain. Pain, no weakness with bringing hands to mouth, more comfortable with keeping the arm closely against her side Right. Sensation intact in an axillary distribution. Fires EPL, FPL and intrinsics. Hand is warm and well perfused. Imaginv of the Right shoulder ordered and obtained at [facility] today were reviewed during the visit. These demonstrate a reduced glenohumeral joint. Central post and all peripheral screws have excellent purchase within the glenoid vault. Good apposition between baseplate and king salmon glenoid. No evidence for scapular fracture, glenoid notching, or component loosening. No obvious acromial fracture. Impression: 78-year-old tdmxv-ccgm-qghvupgx woman, now 3 months out from surgery as above. Acute onset of primarily anterior shoulder pain beginning earlier this week after stretching and therapy. Differential diagnosis includes injury to anterior soft tissues, including subscapularis repair/biceps tenodesis versus acromial stress fracture. Plan: Will have the patient take a break from physical therapy to allow discomfort to quiet down. Will have her go back to using a sling intermittently for comfort as needed. I have asked her to follow the general principles that if something hurts she should not do it; she is able to do any motion or activity that she can do without discomfort, however. She has been taking Tylenol. Will have her add to this a short course of ibuprofen 400 mg 3 times daily, taking medication with food. I will plan to see her back in a couple of weeks for clinical recheck, no new x-rays. [employer] [facility] speech recognition sap trainer software was used to create portions of this document. An attempt at proofreading has been made to minimize errors. Please call for corrections. Kristina Lau MD [address], [place], [address], [place] [facility] [place] 11/25/2023 14:39:48 12/12/2023 text/html Surgery: Right shoulder bioRSA, 08/23/2023 Interval History: Tanesha returns today in follow-up now 3.5 months out from surgery as above. Did have a bit of a complication during PT on 11/20/2023. Was doing some stretching with her therapist when she felt a sudden pain in the shoulder. Differential diagnosis on evaluation a few days later included disruption of anterior soft tissue repair versus acromial stress fracture. I have had her stop PT and rest the arm. She notes that the shoulder continues to be quite sore. This is felt over the anterior shoulder, particularly over the top of the biceps, but is elicited by raising the arm. Denies crepitus. This pain is felt primarily over the anterior aspect of the shoulder. She has pain with any motion of the arm, or even elbow flexion. Denies crepitus. No issues with her incision. No numbness or tingling in the arm or hand. Past family, medical, social history and review of systems have been reviewed and updated on the medical history sheet saved to the patient's chart. A 12-point review of systems is negative x12 except as noted above and/or on the medical history sheet. Examination: Pleasant 78-year-old woman in no acute distress. On exam of the Right upper extremity, incision is healing nicely. Mild tenderness to palpation over the superior shoulder/acromion, more so over the conjoined tendon, lesser tuberosity. Able to maintain the shoulder abducted against gravity with mild discomfort and difficulty. Does not tolerate active range of motion of the shoulder today. Passive external rotation is to 45 degrees before we have to stop due to discomfort. Passive forward elevation to 130 degrees with minimal pain, but unable to hold the arm here herself. Pain, no weakness with bringing hands to mouth, more comfortable with keeping the arm closely against her side Right. Sensation intact in an axillary distribution. Fires EPL, FPL and intrinsics. Hand is warm and well perfused. Imaginv of the Right shoulder ordered and obtained at [facility] 11/25/2023 were reviewed during the visit. These demonstrate a reduced glenohumeral joint. Central post and all peripheral screws have excellent purchase within the glenoid vault. Good apposition between baseplate and king salmon glenoid. No evidence for scapular fracture, glenoid notching, or component loosening. No obvious acromial fracture. Impression: 78-year-old oisjx-zqak-gzlwchbx woman, now 3.5 months out from surgery as above. Acute onset of primarily anterior shoulder pain about 3 weeks ago after stretching and therapy. Differential diagnosis includes injury to anterior soft tissues, including subscapularis repair/biceps tenodesis versus acromial stress fracture. Plan: Based on her ongoing pain and the activities/motions that bring on this discomfort, and more suspicious of acromial stress fracture, even though the pain is not localizing to the acromion. Discussed the timeframe from recovery from this complication can be 6 to 8 weeks. Would recommend continued rest, intermittent sling use, avoidance of any activity that causes pain until symptoms improve. I will plan to see her back in 4 weeks for recheck with new x-rays at that time. [employer] [facility] speech recognition sap trainer software was used to create portions of this document. An attempt at proofreading has been made to minimize errors. Please call for corrections. Kristina Lau MD [address] [place] [address] [address] [facility], [place], [address], [facility] 12/12/2023 16:11:24 01/09/2024 text/html Surgery: Right shoulder bioRSA, 08/23/2023 Interval History: Tanesha returns today in follow-up now 4.5 months out from surgery as above. Did have a bit of a complication during PT on 11/20/2023. Was doing some stretching with her therapist when she felt a sudden pain in the shoulder. Differential diagnosis on evaluation a few days later included disruption of anterior soft tissue repair versus acromial stress fracture. I have had her stop PT and rest the arm. It has taken a bit longer than usual, but shes notes that the symptoms have subsided significantly. Still some anterior shoulder discomfort with use of her biceps, but no superior shoulder pain at this point. Denies crepitus. She remains out of PT. This pain is felt primarily over the anterior aspect of the shoulder. She has pain with any motion of the arm, or even elbow flexion. Denies crepitus. No issues with her incision. No numbness or tingling in the arm or hand. Past family, medical, social history and review of systems have been reviewed and updated on the medical history sheet saved to the patient's chart. A 12-point review of systems is negative x12 except as noted above and/or on the medical history sheet. Examination: Pleasant 78-year-old woman in no acute distress. On exam of the Right upper extremity, incision is healing nicely. Mild tenderness to palpation over the superior shoulder/acromion, more so over the conjoined tendon, lesser tuberosity. Able to maintain the shoulder abducted against gravity with mild discomfort and difficulty. Active forward elevation 120, passive 150. Passive external rotation is to 50 degrees before we have to stop due to discomfort. Pain, no weakness with bringing hands to mouth, more comfortable with keeping the arm closely against her side Right. Sensation intact in an axillary distribution. Fires EPL, FPL and intrinsics. Hand is warm and well perfused. Imaginv of the Right shoulder ordered and obtained at [facility] today were reviewed during the visit. These demonstrate a reduced glenohumeral joint. Central post and all peripheral screws have excellent purchase within the glenoid vault. Good apposition between baseplate and king salmon glenoid. No evidence for scapular fracture, glenoid notching, or component loosening. No obvious acromial fracture. Impression: 78-year-old drmci-nvmn-djabpvke woman, now 4.5 months out from surgery as above. Acute onset of primarily anterior shoulder pain about 7 weeks ago after stretching in therapy. Differential diagnosis includes injury to anterior soft tissues, including subscapularis repair/biceps tenodesis versus acromial stress fracture. Based on location of her symptoms currently, suspect the former. Plan: She is a little bit leery about returning to physical therapy, understandably. Will have her resume some home exercises at this point, working on supine active and active assist forward elevation and table slides, working her way to wall climbs. Also instructed her in some passive ER exercises and gave her permission to begin go work on range of motion behind the back. If she is happy with her progress with home exercise, will continue this route. If she feels ready to go back to formal physical therapy, she will let us know I am happy to provide a new prescription. I will plan to see her back in another 6 weeks for next recheck. Can hold off on x-rays at that appointment as long as she is doing okay. [employer] [facility] speech recognition sap trainer software was used to create portions of this document. An attempt at proofreading has been made to minimize errors. Please call for corrections. Kristina Lau MD [facility] [address], [place], [address], [facility] 01/09/2024 15:19:00 02/20/2024 text/html Surgery: Right shoulder bioRSA, 08/23/2023 Interval History: Tanesha returns today in follow-up now 6 months out from surgery as above. Did have a bit of a complication during PT on 11/20/2023. Was doing some stretching with her therapist when she felt a sudden pain in the shoulder. Differential diagnosis on evaluation a few days later included disruption of anterior soft tissue repair versus acromial stress fracture. I have had her stop PT and rest the arm. It has taken a bit longer than usual, but shes notes that the symptoms have subsided significantly. Still some anterior shoulder discomfort with use of her biceps, but no superior shoulder pain at this point. Denies crepitus. She remains out of PT, but has picked back up with exercises on her own at home. This pain is felt primarily over the anterior aspect of the shoulder. She has pain with any motion of the arm, or even elbow flexion. Denies crepitus. No issues with her incision. No numbness or tingling in the arm or hand. Past family, medical, social history and review of systems have been reviewed and updated on the medical history sheet saved to the patient's chart. A 12-point review of systems is negative x12 except as noted above and/or on the medical history sheet. Examination: Pleasant 78-year-old woman in no acute distress. On exam of the Right upper extremity, incision is healing nicely. Mild tenderness to palpation over the superior shoulder/acromion, more so over the conjoined tendon, lesser tuberosity. Able to maintain the shoulder abducted against gravity with mild discomfort and difficulty. Active forward elevation 140, passive 155. Passive external rotation is to 55 degrees. Sensation intact in an axillary distribution. Fires EPL, FPL and intrinsics. Hand is warm and well perfused. Imaginv of the Right shoulder ordered and obtained at [facility] 01/09/2024 were reviewed during the visit. These demonstrate a reduced glenohumeral joint. Central post and all peripheral screws have excellent purchase within the glenoid vault. Good apposition between baseplate and king salmon glenoid. No evidence for scapular fracture, glenoid notching, or component loosening. No obvious acromial fracture. Impression: 78-year-old maoyp-mrux-jwxansua woman, now 6 months out from surgery as above. Acute onset of primarily anterior shoulder pain about 3 months postop after stretching in therapy. Differential diagnosis includes injury to anterior soft tissues, including subscapularis repair/biceps tenodesis versus acromial stress fracture. Based on location of her symptoms currently, suspect the former. Symptoms have subsided with time. Plan: I have encouraged her to continue with her stretching exercises and gradual return to more normal use of the shoulder. With day-to-day activities, may gradually increase what she is doing. Discussed the importance of listening to her body, stopping if there is pain. Also discussed the importance of good mechanics, including keeping weight close to the body, avoiding lifting an awkward positions with weight away from the body, and using slow controlled movements always. For occasional aches and pains, she can take [id number] medication such as Tylenol or anti-inflammatories as needed; risks and benefits of medication discussed. Should call with more persistent pain. I will plan to see the patient back in another 6 months for annual recheck with new xrays at that time. Encouraged to call sooner with any issues or concerns that may arise in the interim. [employer] speech recognition sap trainer software was used to create portions of this document. An attempt at proofreading has been made to minimize errors. Please call for corrections. [employer] speech recognition sap trainer software was used to create portions of this document. An attempt at proofreading has been made to minimize errors. Please call for corrections. Kristina Lau MD [address] [place] [address] [address] [facility], [place], [address], [facility] 02/20/2024 16:06:59 08/13/2024 text/html Surgery: Right shoulder bioRSA, 08/23/2023 Interval History: Tanesha returns today in follow-up now 1 year out from surgery as above. Did have a bit of a complication during PT on 11/20/2023. Was doing some stretching with her therapist when she felt a sudden pain in the shoulder. Differential diagnosis on evaluation a few days later included disruption of anterior soft tissue repair versus acromial stress fracture. I have had her stop PT and rest the arm. It has taken a bit longer than usual, but she notes that the symptoms have subsided significantly. Minimal anterior shoulder discomfort with use of her biceps, but no superior shoulder pain at this point. Denies crepitus. She remains out of PT, but has picked back up with exercises on her own at home. Past family, medical, social history and review of systems have been reviewed and updated on the medical history sheet saved to the patient's chart. A 12-point review of systems is negative x12 except as noted above and/or on the medical history sheet. Examination: Pleasant 79-year-old woman in no acute distress. On exam of the Right upper extremity, incision is healing nicely. No point tenderness to palpation. Able to maintain the shoulder abducted against gravity with mild discomfort and difficulty. Active forward elevation 165, passive 165. Passive external rotation is to 55 degrees with negative ER lag. Internal rotation to the belt line. Sensation intact in an axillary distribution. Fires EPL, FPL and intrinsics. Hand is warm and well perfused. Imaginv of the Right shoulder ordered and obtained at [facility] today were reviewed during the visit. These demonstrate a reduced glenohumeral joint. Central post and all peripheral screws have excellent purchase within the glenoid vault. Good incorporation of bone graft between baseplate and king salmon glenoid. No evidence for scapular fracture, glenoid notching, or component loosening. No obvious acromial fracture. Impression: 79-year-old [id number] woman, now 1 year out from surgery as above. Acute onset of primarily anterior shoulder pain about 3 months postop after stretching in therapy. Differential diagnosis includes injury to anterior soft tissues, including subscapularis repair/biceps tenodesis versus acromial stress fracture. Based on location of her symptoms as well as resolution with time, suspect the former. Essentially asymptomatic at this point. Plan: I have encouraged the patient to continue with a slow and steady progression of strengthening activities, working up to higher reps before increasing the amount of weight or resistance. With day-to-day activities, may gradually increase what she is doing. Discussed the importance of listening to her body, stopping if there is pain. Also discussed the importance of good mechanics, including keeping weight close to the body, avoiding lifting an awkward positions with weight away from the body, and using slow controlled movements always. For occasional aches and pains, she can take [id number] medication such as Tylenol or anti-inflammatories as needed; risks and benefits of medication discussed. Should call with more persistent pain. We will leave follow up open ended at this point. However should symptoms worsen or fail to improve to the patient's satisfaction, she is encouraged to give the office a call to be seen back for further evaluation and management. [facility] speech recognition sap trainer software was used to create portions of this document. An attempt at proofreading has been made to minimize errors. Please call for corrections. Kristina Lau MD [address], [place], [address], [facility] 08/13/2024 13:15:49 OBGyn Episode No OBEpisode recorded.
--- OUTSIDE RECORDS SUMMARY | 2024-10-04 15:07 | XMS_ITS | Clinical Summary ---
Author Organization [facility] Address [address] [place] [address] Phone Care Team Providers Care Weeder Thinner Name Role Phone Keaton Leigh MD Primary Care Provider + [phone] Allergies Active Allergy Reactions Criticality Noted Date Comments Morphine Nausea And Vomiting 06/03/2020 Oxycodone Nausea And Vomiting 06/03/2020 Sulfa (Sulfonamide Antibiotics) Rash 02/02 Vancomycin 02/13/2018 Medications MAGNESIUM HYDROXIDE ORAL Take by mouth. Active levothyroxine (SYNTHROID, LEVOTHROID) 100 mcg tablet Take 100 mcg by mouth daily. Active diindolylmethane , bulk, 100 % powder 100 mg by Does not apply route 2 times daily. Active HYDROmorphone (DILAUDID) 2 mg tablet Take 1 tablet (2 mg total) by mouth every 6 (six) hours if needed. Max Daily Amount: 8 mg 08/07/2021 Active acetaminophen 500 mg powder in packet Take by mouth. Active atenoloL (TENORMIN) 25 mg tablet Take 25 mg by mouth daily. Active linaCLOtide (LINZESS) 145 mcg capsule Take 145 mcg by mouth daily. Active dehydroepiandros terone (DHEA) 25 mg tablet Take by mouth. Active levothyroxine (SYNTHROID, LEVOTHROID) 112 mcg tablet Take 112 mcg by mouth daily. Active docusate sodium (COLACE) 100 mg capsule Take 100 mg by mouth 2 times daily. Active coenzyme Q-10 100 mg capsule Take by mouth. Active cyanocobalamin (VITAMIN B-12) 1,000 mcg tablet Take 1,000 mcg by mouth daily. Active ergocalciferol, vitamin D2, (VITAMIN D2 ORAL) Take by mouth. Active Active Problems Problem Noted Date Diagnosed Date Chronic idiopathic constipation 03/09/2022 Cervical spine instability 07/14/2021 Overview (01/24/2024): Last Assessment & Plan: Ms. Dejesus is here for a 1 year follow-up after her C3-4 ACDF with plating on 07/27/2021. She is doing reasonably well in terms of the recovery from her neck surgery, occasionally hearing some crackles with movement. Since then she has had a right mastectomy with a return to the OR the same day for excessive drainage. She is also dealing with a sister who is now on hospice for end-stage lung and renal cancer. She just feels tired and with low energy but is trying to remain active doing 4 minutes on a stationary bicycle every day which takes to 34 minutes. She is scheduled to start PT and OT tomorrow for general conditioning, improvement in hand function and gait assessment. On exam, there is no tenderness, step-off or deformity the cervical spine. She has well-healed anterior cervical incisions. Rotation is 60 degrees bilaterally, strength is 5/5 except left hand manager assurance where she has decreased range of motion of the second and third digits, with the third remaining fully extended. Gait appears slow but steady. Review of the AP/lateral flexion/extension cervical x-rays from today show the graft plate and screws to be in good position with arthrodesis anteriorly and in the midportion of the disc space with a possible 1 to 2 mm retrolisthesis of see 3 on 4 on the extension view only though it is not a perfect lateral. I am not concerned about this and I believe she will continue on to a solid arthrodesis. I encouraged her to participate in therapy and to remain on gabapentin which she is currently taking at 300 mg twice daily as it made her drowsy during the day of taking 3 doses. Alternatively, she could take 200 mg twice daily then 300 mg at at bedtime. Recurrent incisional hernia 06/20/2020 Hiatal hernia 02/13/2018 Pneumonitis 02/13/2018 Pulmonary nodule 02/13/2018 Surgical History Surgery Date Site/Laterality Comments OTHER SURGICAL HISTORY 03/1975 PROCEDURE: REPAIR FEMORAL HERNIA OTHER SURGICAL HISTORY 04/1976 PROCEDURE: UT ANES HRNA RPR UPR ABD LMBR&VNT HERNIA&/DEHSN HEMORRHOID SURGERY 11/1981 PROCEDURE: UT INCISION THROMBOSED HEMORRHOID EXTERNAL ABDOMINAL SURGERY 11/2009 PROCEDURE: UT UNLISTED PROCEDURE ABDOMEN PERITONEUM & OMENTUM; COMMENT: Exploratory laparotomy, lysis of adhesions, low anterior resection with suture rectopexy and proctosigmoidoscopy - by Mihir Andino MD at [facility] OTHER SURGICAL HISTORY 02/2010 PROCEDURE: ---- OTHER ----; COMMENT: Excision of abdominal wall encompassing scar and granuloma with fascial reapproximation and revision of abdominal wall scar - by Mihir Andino MD at [facility] ABDOMINAL SURGERY 05/2010 PROCEDURE: UT UNLISTED PROCEDURE ABDOMEN PERITONEUM & OMENTUM; COMMENT: Exploratory laparotomy with hernia sac excision and dual mesh repair of large recurrent incisional hernia and panniculectomy - by Concepcion Rudolph MD at [facility] OTHER SURGICAL HISTORY 01/2009 PROCEDURE: ---- OTHER ----; COMMENT: Posterior colporrhaphy and perineorrhaphy - by Nettie Sanders MD at [facility] OTHER SURGICAL HISTORY 10/1975 PROCEDURE: REPAIR FEMORAL HERNIA HEMORRHOID SURGERY 10/2008 PROCEDURE: UT INCISION THROMBOSED HEMORRHOID EXTERNAL; COMMENT: hemorrhoidectomy - by Mihir Andino MD at [facility] THYROIDECTOMY PROCEDURE: HISTORICAL TOTAL THYROIDECTOMY; COMMENT: total thyroidectomy and parathyroidectomy OTHER SURGICAL HISTORY PROCEDURE: HISTORICAL PARTIAL BILATERAL MASTECTOMY SHOULDER SURGERY Bilateral PROCEDURE: HISTORICAL SHOULDER SURGERY OTHER SURGICAL HISTORY 04/08/2020 PROCEDURE: ---- OTHER ----; COMMENT: C4-5 anterior cervical discectomy, fusion, and plating - by Dr. Lizeth Sierra at [facility] VENTRAL HERNIA REPAIR 07/28/2020 Right PROCEDURE: HISTORICAL VTRL WALL HERNIA RE; COMMENT: Dr. Mike Rocha OTHER SURGICAL HISTORY 07/27/2021 Left PROCEDURE: ---- OTHER ----; COMMENT: total mastectomy Medical History Medical History Date Comments Anal fissure 12/05/2020 DX:Anal fissure Family History Medical History Relation Name Comments Brain cancer Mother Breast cancer Sister Relation Name Status Comments Mother Sister Social History Tobacco Use Types Packs/Day Years Used Date Smoking Tobacco: Never Smokeless Tobacco: Never Alcohol Use Standard Drinks/Week Comments No 0 (1 standard drink = 0.6 oz pur e alcohol) Comments Unknown Sex and Gender Information Value Date Recorded Sex Assigned at Not on file Legal Sex Female 1:05 AM EST Gender Identity Not on file Sexual Orientation Not on file Obstetrics History Last Filed Vital Signs Vital Sign Reading Time Taken Comments Blood Pressure 171/80 03/09/2022 9:27 AM EST Pulse 55 03/09/2022 9:27 AM EST Temperature - - Respiratory Rate - - Oxygen Saturation - - Inhaled Oxygen Concentration - - Weight 68.5 kg (151 lb) 03/09/2022 9:27 AM EST Height 160 cm (5' 3 ) 09/18/2021 10:29 AM EDT Body Mass Index 26.75 09/18/2021 10:29 AM EDT Plan of Treatment Upcoming Encounters Date Type Department Care Team (Late st Contact Info) Description 11/23/2024 2:10 PM EDT Office Visit Gastroenterology - [address] [place] [id number] Ana Mendoza PA [address] [place] [address] Health Maintenance Due Date Last Done Comments DTaP,Tdap,and Td Vaccines (1 - Tdap) 1964 Cholesterol Screening (Lipid Panel) 03/07/2022 Depression Screening 03/07/2022 Falls Risk Assessment 03/07/2022 Hepatitis C Screening 03/07/2022 Medicare Annual Wellness Visit 03/07/2022 Social Influencers of Health Screening 03/07/2022 Zoster Vaccines (2 of 2) 05/07/2024 03/12/2024 Hypertension/CHF/CAD Annual BMP Blood Test 07/24/2024 07/25/2023, 12/14/2022, 06/03/2020 COVID-19 Vaccine (7 - Pfizer risk 2023- season) 2024 02/02/2024, 03/09/2023, 04/06/2022, Additional history exists Osteoporosis Screening (Bone Density Screening) 02/19/2034 02/20/2024, 12/14/2021, 02/23/2019 RSV Immunization Adult Patients Completed 03/09/2023 Influenza Vaccine Completed 02/02/2024, 01/03/2023 Pneumococcal Vaccine: 50+ Years Completed 03/12/2024 HIB Vaccines Aged Out No longer eligi ble based on patient's age to complete this topic HPV Vaccines Aged Out No longer eligi ble based on patient's age to complete this topic Hepatitis A Vaccines Aged Out No long er eligible based on patient's age to complete this topic Hepatitis B Vaccines Aged Out No long er eligible based on patient's age to complete this topic IPV Vaccines Aged Out No longer eligi ble based on patient's age to complete this topic MMR Vaccines Aged Out No longer eligi ble based on patient's age to complete this topic Meningococcal ACWY Vaccine Aged Out N o longer eligible based on patient's age to complete this topic Meningococcal B Vaccine Aged Out No l onger eligible based on patient's age to complete this topic RSV Immunization Patients Under 20 months Aged Out No longer eligible based on patient's age to complete this topic Varicella Vaccines Aged Out No longer eligible based on patient's age to complete this topic Procedures Procedure Name Priority Date/Time Associated Diagnosis Comments BD BONE DENSITY DXA AXIAL SKELETON Routine 02/20/2024 1:17 PM EST Age-related osteoporosis without current pathological fracture ANNUAL BMP BLOOD TEST Routine 06/03/2020 from Last 3 Months or Most Recently Relevant to Health Maintenance Results * BD Bone Density DXA Axial Skeleton (02/20/2024 1:17 PM EST) Anatomical Region Laterality Modality Wrist, Hip, L-spine Bone Densito metry 02/20/2024 1:47 PM EST Impressions 02/20/2024 1:48 PM EST Osteoporosis. 25442 -------- FINAL REPORT -------- Dictated By: Madonna Mckinley Dictated Date: 02/20/2024 13:47 ET Assigned Physician: Madonna Mckinley Reviewed and Electronically Signed By: Madonna Mckinley Signed Date: 02/20/2024 13:48 ET Workstation ID: [id number] Transcribed By: Self Edit Transcribed Date: 02/20/2024 13:47 ET Narrative 02/20/2024 1:48 PM EST History: Low estrogen state due to menopause. Personal history of fracture. Comparison: 12/14/21 Findings: Bone densitometry is performed utilizing dual energy x-ray absorptiometry (DXA) in the [employer] Prodigy unit. The lumbar spine and proximal femora are evaluated in the AP projection. The FRAX questionaire was completed. The results indicate osteoporosis, with a right total femur T-score of -3.1. The Z score is -1.2, indicating low bone mineral density for age. There has been no statistically significant change. The detailed DEXA report will be mailed to the referring physician's office. DualFemur FRAX: 10-year Probability of Fracture: Major Osteoporotic 24.3 percent Hip 7.2 percent. Procedure Note Madonna Mckinley MD - 02/20/2024 History: Low estrogen state due to menopause. Personal history offracture. Comparison: 12/14/21 Findings: Bone densitometry is performed utilizing dual energy x-ray absorptiometry(DXA) in the [employer] Prodigy unit. The lumbar spine and proximal femora areevaluated in the AP projection. The FRAX questionaire was completed. The results indicate osteoporosis, with a right total femur T-score of-3.1. The Z score is -1.2, indicating low bone mineral density for age. There has been no statistically significant change. The detailed DEXAreport will be mailed to the referring physician's office. DualFemur FRAX: 10-year Probability of Fracture: Major Osteoporotic 24.3percent Hip 7.2 percent. IMPRESSION: Osteoporosis. [id number] -------- FINAL REPORT -------- Dictated By: Madonna Mckinley Dictated Date: 02/20/2024 13:47 ET Assigned Physician: Madonna Mckinley Reviewed and Electronically Signed By: Madonna Mckinley Signed Date: 02/20/2024 13:48 ET Workstation ID: [id number] Transcribed By: Self Edit Transcribed Date: 02/20/2024 13:47 ET Nuha Crowley MD [facility] DXA PROCEDURES Final Re sult * Annual BMP Blood Test (06/03/2020) [facility] Annual BMP Blood Test Abstracted Historical Provider HEALTH MAINTENANCE Final Result from Last 3 Months or Most Recently Relevant to Health Maintenance Insurance [employer] MEDICARE Advance Directives Documents on File Type Date Recorded Patient Fiscal Clerk Expl anation Health Care Decision (hx) 03/03/2018 AD DAVE DIRECTIVE Health Care Decision (hx) 03/03/2018 AD DAVE DIRECTIVE Health Care Decision (hx) 03/03/2018 AD DAVE DIRECTIVE Health Care Decision (hx) 03/03/2018 AD DAVE DIRECTIVE Health Care Decision (hx) 03/03/2018 AD DAVE DIRECTIVE Health Care Decision (hx) 03/03/2018 AD DAVE DIRECTIVE Health Care Decision (hx) 03/03/2018 AD DAVE DIRECTIVE Health Care Decision (hx) 03/03/2018 AD DAVE DIRECTIVE Health Care Decision (hx) 03/03/2018 AD DAVE DIRECTIVE Health Care Decision (hx) 03/03/2018 AD DAVE DIRECTIVE Health Care Decision (hx) 03/03/2018 AD DAVE DIRECTIVE Health Care Decision (hx) 03/03/2018 AD DAVE DIRECTIVE Health Care Decision (hx) 03/03/2018 AD DAVE DIRECTIVE Health Care Decision (hx) 03/03/2018 AD DAVE DIRECTIVE Health Care Decision (hx) 03/03/2018 AD DAVE DIRECTIVE Health Care Decision (hx) 03/03/2018 AD DAVE DIRECTIVE Health Care Decision (hx) 03/03/2018 AD DAVE DIRECTIVE Health Care Decision (hx) 03/03/2018 AD DAVE DIRECTIVE Health Care Decision (hx) 03/03/2018 AD DAVE DIRECTIVE Health Care Decision (hx) 03/03/2018 AD DAVE DIRECTIVE Health Care Decision (hx) 03/03/2018 AD DAVE DIRECTIVE Health Care Decision (hx) 03/03/2018 AD DAVE DIRECTIVE Health Care Decision (hx) 03/03/2018 AD DAVE DIRECTIVE Health Care Decision (hx) 03/03/2018 AD DAVE DIRECTIVE Health Care Decision (hx) 03/03/2018 AD DAVE DIRECTIVE Health Care Decision (hx) 03/03/2018 AD DAVE DIRECTIVE Health Care Decision (hx) 03/03/2018 AD DAVE DIRECTIVE Health Care Decision (hx) 03/03/2018 AD DAVE DIRECTIVE Health Care Decision (hx) 03/03/2018 AD DAVE DIRECTIVE Health Care Decision (hx) 03/03/2018 AD DAVE DIRECTIVE Health Care Decision (hx) 03/03/2018 AD DAVE DIRECTIVE Health Care Decision (hx) 03/03/2018 AD DAVE DIRECTIVE Health Care Decision (hx) 03/03/2018 AD DAVE DIRECTIVE Health Care Decision (hx) 03/03/2018 AD DAVE DIRECTIVE Health Care Decision (hx) 03/03/2018 AD DAVE DIRECTIVE Health Care Decision (hx) 03/03/2018 AD DAVE DIRECTIVE Health Care Decision (hx) 03/03/2018 AD DAVE DIRECTIVE Health Care Decision (hx) 03/03/2018 AD DAVE DIRECTIVE Health Care Decision (hx) 03/03/2018 AD DAVE DIRECTIVE Health Care Decision (hx) 03/03/2018 AD DAVE DIRECTIVE Health Care Decision (hx) 03/03/2018 AD DAVE DIRECTIVE Health Care Decision (hx) 03/03/2018 AD DAVE DIRECTIVE Health Care Decision (hx) 03/03/2018 AD DAVE DIRECTIVE Health Care Decision (hx) 03/03/2018 AD DAVE DIRECTIVE Health Care Decision (hx) 03/03/2018 AD DAVE DIRECTIVE Health Care Decision (hx) 03/03/2018 AD DAVE DIRECTIVE Health Care Decision (hx) 03/03/2018 AD DAVE DIRECTIVE Health Care Decision (hx) 03/03/2018 AD DAVE DIRECTIVE Health Care Decision (hx) 03/03/2018 AD DAVE DIRECTIVE Health Care Decision (hx) 03/03/2018 AD DAVE DIRECTIVE Health Care Decision (hx) 03/03/2018 AD DAVE DIRECTIVE Health Care Decision (hx) 03/03/2018 AD DAVE DIRECTIVE Health Care Decision (hx) 03/03/2018 AD DAVE DIRECTIVE Health Care Decision (hx) 03/03/2018 AD DAVE DIRECTIVE Health Care Decision (hx) 03/03/2018 AD DAVE DIRECTIVE Health Care Decision (hx) 03/03/2018 AD DAVE DIRECTIVE Health Care Decision (hx) 03/03/2018 AD DAVE DIRECTIVE Health Care Decision (hx) 03/03/2018 AD DAVE DIRECTIVE Health Care Decision (hx) 03/03/2018 AD DAVE DIRECTIVE Health Care Decision (hx) 03/03/2018 AD DAVE DIRECTIVE Health Care Decision (hx) 03/03/2018 AD DAVE DIRECTIVE Health Care Decision (hx) 03/03/2018 AD DAVE DIRECTIVE Care Teams Weeder Thinner Relationship Specialty Start Date End Date Keaton Leigh MD [address] [place], [place] [address] PCP - General Internal Medicine 06/01/10
--- NOTE | 2024-10-04 15:17 | MHC.OFFVIS ---
Vital Signs 10/04/24 15:18 Height 5 ft 6 in Weight 147 lb BMI 23.7 BP 128/68 Blood Pressure Location Lt brachial Position Sitting Pulse 87 Pulse Source Pulse Oximeter Intake Visit Reasons: 2 yrs followup w/ekg dx: sinus bradycardia Allergies morphine Allergy (Severe, Verified 01/30/24 10:28) Vomiting Sulfa (Sulfonamide Antibiotics) Allergy (Severe, Verified 01/30/24 10:28) hives aspirin (ASA) Allergy (Intermediate, Verified 01/30/24 10:28) UPSET STOMACH Thimerosal Allergy (Severe, Uncoded 01/30/24 10:28) Vomiting Medication List - Last Reconciled 10/04/24 by Santo Cortez MD acetaminophen (Tylenol Extra Strength) 500 mg PO QID PRN [Annetto-E ] atenolol 25 mg PO celecoxib (Celebrex) 200 mg PO DAILY cholecalciferol (vitamin D3) 125 mcg PO DAILY coenzyme Q10 10 mg PO TID [Dim-Evail ] docusate sodium (Colace) 100 mg PO BID famotidine (Pepcid) 40 mg PO DAILY 30 days gabapentin 300 mg PO .PM gabapentin 100 mg PO ONCE zcjawuqu-kxf-ettow-lzk466-rkay 500-500-66.7 mg (Csrevkywfzw-Jqikhlqrxje-HCG (with antiox)) tabs PO BID lactobacillus combination no.9 (Adult 50 Plus Probiotic) 4,000 mmu cells PO DAILY levothyroxine 100 mcg PO DAILY linaclotide (Linzess) 145 mcg PO DAILY lutein 40 mg PO DAILY mecobalamin (vitamin B12) mcg PO omega-3 fatty acids 500 mg PO DAILY prasterone (DHEA) (DHEA) 25 mg PO DAILY HPI Comments Details: Tanesha comes for follow-up. Well she has been doing well from cardiac perspective. Exercises regularly. Denies any exertional chest pain with activity. She says she does more nonweightbearing exercise with biking because of feet pain. Denies any heart failure symptoms. Occasional episodes of lightheadedness which are rare happening was mostly in the morning times after she is awake and upright and walking around. No syncopal episodes. She is trying to improve her overall water intake. Denies any heart failure symptoms. [facility] Medical History Hiatal hernia Constipation Hand paresthesia Pulmonary nodules Pulmonary nodule Hyperlipidemia Vasovagal syncope Surgical History H/O breast surgery Family History Father Stroke Mother No problems noted. Social History Patient Tobacco Use Status: Never used Tobacco Review of Systems Const Reports no additional complaints and Denies weakness Eyes Reports no additional complaints ENT Reports no additional complaints and Denies dizziness Card Denies chest pain, Denies chest pain with activity, Denies syncope, Denies rapid heart rate, Denies pedal edema, Denies edema, Denies leg edema, Denies lightheadedness, Denies palpitations, Denies dyspnea, Denies dyspnea on exertion and Denies orthopnea Resp Denies cough, Denies dyspnea and Denies dyspnea on exertion GI Denies hematochezia and Denies change in stool character Musc Denies abnormal gait, Denies muscle cramps, Denies muscle weakness, Denies numbness, Denies radiating pain into limb and Denies tingling Neuro Denies abnormal gait, Denies dizziness, Denies syncope, Denies numbness, Denies tingling and Denies weakness Endo Denies palpitations Physical Exam Vital Signs: Last Vital Signs Pulse 87 10/04/24 15:18 BP 128/68 10/04/24 15:18 BMI result Body Mass Index 23.7 Const General: cooperative, comfortable, no acute distress, alert, awake and well groomed Nutritional Appearance: average body habitus Orientation/consciousness: patient oriented x3 Limitations: no limitations Neck Neck: Yes trachea midline, Yes supple and Yes no JVD Resp Effort & Inspection: normal respiratory effort Auscultation: clear to auscultation bilaterally Cardio Jugular venous distension: no JVD Palpation: normal PMI Rate: regular rate Rhythm: regular rhythm Heart sounds: S1 normal heart sound present and S2 normal heart sound present GI Auscultation: normal bowel sounds Neuro General: patient oriented x3 and no focal motor deficits Extrem General: Yes no clubbing, cyanosis or edema Psych Appearance: grossly normal Office Procedures EKG Details: EKG shows normal sinus rhythm with small Q-wave in lead 3 most likely due to body habitus otherwise normal EKG 36398-[id number], Complete Assessment & Plan Assessment & Plan (1) Vasovagal syncope: Code(s): R55 - Syncope and collapse Category: Medical Plan: Patient with prior vasovagal syncope with intermittent episodes of lightheadedness which appears to be more orthostatic than vasovagal at this point time. We discussed again management of vasovagal syncope and orthostatic lightheadedness. Advised to continue aggressive hydration. She says she understands that in his going to continue to pursue more aggressive hydration. Orthostatic precautions were discussed. Seeking sitting or supine position when he is having symptoms was discussed. She understands. (2) Hyperlipidemia: Code(s): E78.5 - Hyperlipidemia, unspecified Category: Medical Plan: Hyperlipidemia being followed by your office. She is currently not on any statin therapy. She is currently no concerning symptoms of ischemia. Continue aggressive lifestyle modification. Continue participate in regular physical activity as tolerated. At least targeted goal LDL less than 100 mg/dL. Advised to call me with any new symptoms. Will follow up in the clinic in couple of years on her request. Thank you for allowing me to partake in her care Coding Level of Care Code Est Pt Level 4 (09122) Complex EM visit Add On G2211 Diagnoses Vasovagal syncope R55 Hyperlipidemia E78.5 CPT Codes EKG - CPT: 72378-Jzsjgwkgdtpjlzcnw, Complete ([id number])
[2024-10-04 15:18] VITALS: BP 128/68; PULSE 87; BMI 23.7
== END 2024-10-04 16:20 | disposition home or self-care (01) ==
LOC: HO.HCS 15:04
PROVIDERS: PCP Internal Medicine; Visit Provider Internal Medicine Cardiovascular Disease
DX: R55 Syncope and collapse (principal); E78.5 Hyperlipidemia, unspecified
CPT/HCPCS: 93010; 99214; G2211

== ENCOUNTER → 2024-10-04 15:03 | Outpatient (BNVA) | payer MEDICARE, OTHER, SELFPAY | PROVIDERS: PCP Internal Medicine; Visit Provider Internal Medicine Cardiovascular Disease | DX: R55 Syncope and collapse (principal); E78.5 Hyperlipidemia, unspecified; Z79.899 Other long term (current) drug therapy | CPT/HCPCS: 93005; 99212 ==

== ENCOUNTER → 2024-11-22 14:49 | Outpatient (REF) | payer MEDICARE, OTHER, SELFPAY ==
--- OUTSIDE RECORDS SUMMARY | 2024-11-22 14:52 | XMS_ITS | Patient Health Record ---
Author Organization [facility] Address [address] [place] [address] Care Team Providers Care Inspector Heating And Refrigeration Name Role Phone Keaton Leigh MD Primary Care Provider Unavail able Black, Cristine Unavailable [phone] Allergies Allergen (clinical drug ingredient) Drug/Non Drug [...] Status Risk Notes Problem Pain in limb (16450083) Pain in Limb (729.5) Active confirmed Problem Edema (23486596) Edema (782.3) Active confirmed Problem Hallux valgus (962333607) Hallux Valgus (735.0) Active confirmed Problem Hammer toe (983329826) Hammer toe (735.4) Active confirmed Problem Stress fracture (59007266) Stress fx (733.94) Active confirmed Plan Of Treatment Pending Test Test Name Order Date Tc99 3 phase Bone Scan 12/11/2013 X ray : Foot, left 3V 02/18/2014 48524, [id number]/INJECT, JOINT/BURSA 0 12/17/2013 Insurance Providers Payer Name Payer Address Payer Phone Subscriber Number Group Number Insured Name Patient Relationship to Insured Coverage Start Date Coverage End Date Medicare National Govt [employer] [address] [place] [id number] Tanesha Dejesus Self - patient is the insured [employer] [place] [address] [place] [phone] [id number] Tanesha Dejesus Self - patient is the [...]
--- OUTSIDE RECORDS SUMMARY | 2024-11-22 14:52 | XMS_ITS | Clinical Summary ---
Author Organization [facility] Address [address] [place] [address] Care Team Providers Care Screen And Cyclone Repairer Name Role Phone Keaton Leigh MD Primary Care Provider + [phone] Social History Tobacco Use Types Packs/Day Years [...] - 1-dose 75+ series) 2021 Influenza Vaccine (#1) 2024 Hepatitis B Vaccines Aged Out No long er eligible based on patient's age to complete this topic RSV Ped < 20 months Aged Out No longe r eligible based on patient's age to complete this topic Care Teams Screen And Cyclone Repairer Relationship Specialty Start Date End Date Keaton Leigh MD [address] [address] PCP - General Internal Medicine 02/04/20
--- OUTSIDE RECORDS SUMMARY | 2024-11-22 14:52 | XMS_ITS | Clinical Summary ---
Author Organization Formerly [facility] Address [address] [place] [phone] Phone Care Team Providers Care Pre Owned Sales Manager Name Role Phone Keaton Leigh MD Primary Care Provider + [phone] Allergies Active Allergy Reactions Criticality Noted Date Comments Milk Containing Products (Dairy) Swelling 05/14/2022 Other reaction(s): congestion Morphine Nausea and/or Vomiting,Nausea And Vomiting 06/03/2020 vomit Nsaids (Non-Steroidal Anti-Inflammatory Drug) GI Upset 07/07/2022 Oxycodone GI Upset,Nausea And Vomiting 06/03/2020 Scallops Other (See Comments) 09/06/2024 Sulfa (Sulfonamide Antibiotics) Hives,Rash Low 02/13/2018 Vancomycin 02/13/2018 Medications atenolol (TENORMIN) 50 mg tablet Take 25 mg by mouth daily. 3 Active acetaminophen (TYLENOL) 650 MG CR tablet Take 1,300 mg by mouth 2 (two) times a day. 3 Active cholecalciferol 125 mcg/mL (5,000 unit/mL) oral drops 5 drops DAILY (route: oral) 3 Active cyanocobalamin, vitamin B-12, 5,000 mcg Cap 1 capsule DAILY (route: oral) 3 Active prasterone, dhea, 25 mg Cap 1 capsule BEDTIME (route: oral) 3 Active docusate sodium (COLACE) 100 MG capsule 1 capsule 2 TIMES DAILY (route: oral) 3 Active linaCLOtide (LINZESS) 145 mcg Cap 1 capsule DAILY (route: oral) 3 Active L.acid,casei,plant, saliv/B.ani (PROBIOTIC FORMULA ORAL) Take by mouth. 2 Active glucosamine-chondro it-vit C-Mn (GLUCOSAMINE-CHONDR OITIN COMPLX) Cap 1 capsule DAILY (route: oral) 3 Active gabapentin (NEURONTIN) 300 MG capsule Take 300 mg by mouth nightly at bedtime. 3 Active vitamin E acetate (VITAMIN E ORAL) Take by mouth. Active coenzyme Q10 100 mg capsule Take 100 mg by mouth daily. Active MAGNESIUM ORAL Take 100 mg by mouth daily. Active gabapentin (NEURONTIN) 100 MG capsule Take 100 mg by mouth daily. 4 Active lutein 40 mg Cap Take by mouth daily. Active famotidine (PEPCID) 40 MG tablet Take 40 mg by mouth every morning. 4 Active levothyroxine (SYNTHROID, LEVOTHROID) 100 MCG tabletIndications:P ostoperative hypothyroidism 1 table, orally, 6 days week skip the 7th day 78 tablet 3 4 Active celecoxib (CELEBREX) 200 MG capsule Take by mouth daily. Active Active Problems Problem Noted Date Diagnosed Date Malignant neoplasm of thyroid gland 07/09/2022 Overview (01/06/2023): 1994, s/p total thyroidectomy & VELAZQUEZ, no evidence of residual or recurrent disease Assessment & Plan (09/07/2024 4:51 PM EDT): Thyroglobulin remains low. No evidence of residual or recurrent dz. Will continue to monitor. Assessment & Plan (02/02/2024 5:18 PM EDT): Thyroglobulin remains low. No evidence of residual or recurrent dz. Will continue to monitor. Assessment & Plan (08/02/2023 12:57 PM EDT): Thyroglobulin remains low. No evidence of residual or recurrent dz. Will continue to monitor. Assessment & Plan (01/06/2023 5:24 PM EDT): Thyroglobulin remains low. Will continue to monitor. Assessment & Plan (07/09/2022 10:53 AM EDT): Do not believe she has had evidence of residual or recurrent dz. Await records & will determine when due for repeat thryoglobulin & antibody. Age-related osteoporosis wit hout current pathological fracture 07/09/2022 Overview (01/06/2023): fx right foot 2018. On alendronate x years. Teriparatide x 2 yrs & boniva for 2- 3 yrs until 2009 Assessment & Plan (09/07/2024 4:55 PM EDT): S/p courses of alendronate, followed by teriparatide then boniva. Last treated ~ 2009. Bone density w/ osteoporosis, stable. Had fractures in rib while sleeping. Not getting adequate calcium & advised she increase dietary calcium. Advised she get into see dentist. Strongly advised she consider rx, would advise zoledronic acid given GI sxs. Reviewed risks/benefits. She will let me know if wishes to pursue. Assessment & Plan (02/02/2024 5:19 PM EDT): Will repeat bone density prior to follow up Assessment & Plan (08/02/2023 1:01 PM EDT): Vitamin D wnl. Assessment & Plan (01/06/2023 5:26 PM EDT): I had prescribed alendronate at last visit @ [facility]. She did not start d/t intervening dx of breast CA. Getting reasonable calcium in via diet. Has not seen dentist recently & would suggest she get into see dentist to make sure all ok & will re-address at follow up visit. Assessment & Plan (07/09/2022 10:54 AM EDT): I had prescribed alendronate at last visit. She has not started d/t intervening dx of breast CA. Would suggest she get into see dentist to make sure all ok prior to starting. Await records. 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 Reports good consistency taking rx appropriately. Will repeat labs prior to follow up, sooner prn symptoms of thyroid dysfunction or > 10-15# weight change, or as otherwise clinically indicated. Assessment & Plan (02/02/2024 5:18 PM EDT): Euthyroid on current rx. Reports good consistency taking rx appropriately. Will repeat labs prior to follow up, sooner prn symptoms of thyroid dysfunction or > 10-15# weight change, or as otherwise clinically indicated. Assessment & Plan (08/02/2023 12:56 PM EDT): Euthyroid on current rx. Reports good consistency taking rx appropriately. Will repeat labs prior to follow up, sooner prn symptoms of thyroid dysfunction or > 10-15# weight change, or as otherwise clinically indicated. Assessment & Plan (01/06/2023 5:23 PM EDT): Euthyroid on current rx. Reports good consistency taking rx appropriately. Will repeat labs prior to follow up, sooner prn symptoms of thyroid dysfunction or > 10-15# weight change, or as otherwise clinically indicated. Assessment & Plan (07/09/2022 10:52 AM EDT): Reports good consistency taking rx appropriately, although recently shifted timing. Will call for recent labs from PCP & obtain records & determine timing of follow up labs. Essential hypertension 04/04/2021 3 Adrenal gland anomaly Overview (08/02/2023): CT scan in June 2022 showed 1 cm left adrenal adenoma vs hyperplasia, appeared benign based on imaging characteristics. Renin/ethan showed no evidence of hyperaldosteronism. Nl 24 hr UFC. Nl LDDST. Nl 24 hr urine for pheo Assessment & Plan (09/07/2024 4:51 PM EDT): Small, 1 cm, benign- appearing. No evidence of hormonal hypersecretion on testing. Assessment & Plan (02/02/2024 5:19 PM EDT): Small, 1 cm, benign- appearing. No evidence of hormonal hypersecretion on testing. Assessment & Plan (08/02/2023 1:00 PM EDT): No evidence of hormonal hypersecretion on testing. Assessment & Plan (01/06/2023 5:28 PM EDT): Received referral from Dr. Leigh. CT scan in June showed 1 cm left adrenal adenoma vs hyperplasia, appeared benign based on imaging characteristics. Renin/ethan showed no evidence of hyperaldosteronism. Will do 24 hr urine for pheo/cortisol. Will also plan on LDDST. Anemia GERD (gastroesophageal reflux disease) Dyslipidemia Arthritis Pulmonary nodule Migraine Vasovagal syncope Breast cancer Encounters Date Type Department Care Team Description 09/12/2024 Orders Only [facility] [address] [place] [address] [place] [address] Nuha Crowley MD Age-related osteoporosis without current pathological fracture (Primary Dx); Malignant neoplasm of thyroid gland 09/06/2024 11:40 AM EDT Office Visit [facility] [address] [place] [address] [place] [address] Nuha Crowley MD Postoperative hypothyroidism (Primary Dx); Malignant neoplasm of thyroid gland; Adrenal gland anomaly; Age-related osteoporosis without current pathological fracture 09/06/2024 Telephone [facility] [address] [place] [address] [place] [address] Nuha Crowley MD Labs before next F/U? (Labs before next F/U?) 08/30/2024 10:46 AM EDT - 08/30/2024 11:59 PM EDT Hospital Encounter [facility] [address] [place] [address] Nuha Crowley MD Discharge Disposition: Home or Self Care from Last 3 Months Social History Tobacco Use Types Packs/Day Years Used Date Smoking Tobacco: Never Smokeless Tobacco: Never Tobacco Cessation:Counseling Given: Not Answered Alcohol Use Standard Drinks/Week Comments Yes 0 (1 standard drink = 0.6 oz pur e alcohol) occasional Education Answer Date Recorded Are you interested in more education? Not on macey e 07/31/2022 Are you concerned about learning? Not on file 07/31/2022 No 07/31/2022 No 07/31/2022 Digital Access Answer Date Recorded No 08/27/2022 No 08/27/2022 Reliable internet access at home? Not on file 08/27/2022 Device with a working camera? Not on file Comments Unknown Sex and Gender Information Value Date Recorded Sex Assigned at Not on file Legal Sex Female 2:25 PM EDT Gender Identity Not on file Sexual Orientation Not on file Last Filed Vital Signs Vital Sign Reading Time Taken Comments Blood Pressure 100/63 09/06/2024 11:28 AM EDT Pulse 67 09/06/2024 11:28 AM EDT Temperature - - Respiratory Rate - - Oxygen Saturation 97% 09/06/2024 11: 28 AM EDT Inhaled Oxygen Concentration - - Weight 67.5 kg (148 lb 12.8 oz) 025 11:28 AM EDT Height 158 cm (5' 2.21 ) 02/02/2024 1:31 PM EDT Body Mass Index 27.04 02/02/2024 1:31 PM EDT Plan of Treatment Upcoming Encounters Date Type Department Care Team (Late st Contact Info) Description 03/26/2025 11:20 AM EST Office Visit [facility] [address] [phone] Nuha Crowley MD [address] [place] [phone] [email or web address] Health Maintenance Due Date Last Done Comments Adult Td,Tdap Booster 1945 LIPID PANEL 1945 DEPRESSION SCREENING 1958 HEPATITIS C SCREENING 1964 PNEUMOCOCCAL VACCINES (50+ years) (1 of 2 - PCV) 1965 ZOSTER VACCINES (1 of 2) 1965 RSV VACCINE (1 - 1-dose 75+ series) 2021 COVID-19 VACCINE ( season) 2023 01/17/2021, 07/18/2020, 06/27/2020 BLOOD PRESSURE 03/08/2025 09/06/2024 TSH LEVEL 08/30/2025 08/30/2024, 10/04/2023, 07/25/2023, Additional history exists SMOKING STATUS SCREENING (Once After 26 Yrs) Completed 07/29/2023 OSTEOPOROSIS SCREENING INITIAL (ONE-TIME) Completed 02/20/2024, 02/02/2024, 02/02/2024 HEPATITIS A VACCINES Aged Out No long er eligible based on patient's age to complete this topic HIB VACCINES Aged Out No longer eligi ble based on patient's age to complete this topic MENINGOCOCCAL VACCINES (ACWY) Aged Out No longer eligible based on patient's age to complete this topic MENINGOCOCCAL VACCINES (B) Aged Out N o longer eligible based on patient's age to complete this topic Medical Devices Not on file Procedures Procedure Name Priority Date/Time Associated Diagnosis Comments COMPREHENSIVE METABOLIC PANEL Routine 08/30/2024 11:11 AM EDT Age-related osteoporosis without current pathological fracture 25-OH VITAMIN D Routine 08/30/2024 11:11 AM EDT Age-related osteoporosis without current pathological fracture COLLAGEN TYPE 1B-TELOPEPTIDE, BLOOD Routine 08/30/2024 11:11 AM EDT Age-related osteoporosis without current pathological fracture PARATHYROID HORMONE (PTH) Routine 08/30/2024 11:11 AM EDT Age-related osteoporosis without current pathological fracture PHOSPHORUS Routine 08/30/2024 11:11 AM EDT Age-related osteoporosis without current pathological fracture TSH WITH REFLEX Routine 08/30/2024 11:11 AM EDT Malignant neoplasm of thyroid gland THYROGLOBULIN ANTIBODY Routine 08/30/2024 11:11 AM EDT Malignant neoplasm of thyroid gland THYROGLOBULIN, TUMOR MARKER Routine 08/30/2024 11:11 AM EDT Malignant neoplasm of thyroid gland BD DXA MONITORING Routine 02/02/2024 1:5 4 PM EDT Age-related osteoporosis without current pathological fracture from Last 3 Months or Most Recently Relevant to Health Maintenance Results * Thyroglobulin antibody (08/30/2024 11:11 AM EDT) Pathologist [facility] THYROGLOBULIN ANTIBODY, S <1.8 <4.0 IU/mL [facility] Comment: (NOTE) ADDITIONAL INFORMATION PLEASE NOTE: The given thyroglobulin antibody (TgAb) reference cutoff of <4.0 IU/mL is for the evaluation of autoimmune thyroiditis. A cutoff of <1.8 IU/mL may be more suitable for the detection of potential thyroglobulin antibody (TgAb) interference in thyroglobulin immunoassays. The thyroglobulin antibody testing method is an immunoenzymatic assay manufactured by [employer] and performed on the [employer] DXI 800. Values obtained from different assay methods or kits may be different and cannot be used interchangeably. The results cannot be interpreted as absolute evidence for the presence or absence of malignant disease. Blood 08/30/2024 11:1 1 AM EDT 08/30/2024 11:19 AM EDT us Nuha Crowley MD LAB BLOOD ORDERABLES F inal Result [facility] [address] [place] [address] * Collagen type 1b-telopeptide, blood (08/30/2024 11:11 AM EDT) Pathologist [facility] Collagen CTx 248 pg/mL [facility] Comment: (NOTE) REFERENCE VALUE 148-967 (18-29 y) 150-635 (30-39 y) 131-670 (40-49 y) 183-1060 (50-59 y) 171-970 (60-69 y) 152-858 (>70 y) 136-689 (Premenopausal) 177-1015 (Postmenopausal) Flagging is based on the age-specific reference interval and not menopausal status. Blood 08/30/2024 11:1 1 AM EDT 08/30/2024 11:19 AM EDT us Nuha Crowley MD LAB BLOOD ORDERABLES F inal Result [facility] MED[facility] [address] [place] [address] * (ABNORMAL) Comprehensive metabolic panel (08/30/2024 11:11 AM EDT) SODIUM 140 133 - 146 mmol/L [facility] POTASSIUM 4.5 3.3 - 5.1 mmol/L [facility] CHLORIDE 106 96 - 108 mmol/L [facility] CO2 24 21 - 35 mmol/L [facility] BUN 24(H) 6 - 19 mg/dL [facility] CREATININE 0.70 0.5 - 1.5 mg/dL [facility] GLUCOSE 84 70 - 99 mg/dL [facility] ALBUMIN 4.1 3.9 - 4.8 g/dL [facility] TOTAL PROTEIN 7.6 6.5 - 8.0 g/dL [facility] CALCIUM 9.6 8.4 - 10.3 mg/dL [facility] ALKALINE PHOSPHATASE 61 39 - 117 U/L [facility] TOTAL BILIRUBIN <0.2 0.0 - 1.2 mg/dL [facility] AST 13 0 - 37 U/L [facility] ALT 7 0 - 40 U/L [facility] GLOBULIN 3.5 1 - 4.8 g/dL [facility] EGFR 88 >59 mL/min/1.7 3m2 [facility] Comment:Estimated glomerular filtration rate calculated using the CKD-EPI refit equation. ANION GAP 15 10 - 20 mmol/L [facility] Blood 08/30/2024 11:1 1 AM EDT 08/30/2024 11:20 AM EDT us Nuha Crowley MD LAB BLOOD ORDERABLES F inal Result Performing Organization Address City/[facility]/ZIP Co de Phone Number [address] [address] * TSH with reflex (08/30/2024 11:11 AM EDT) TSH 1.19 0.27 - 4.20 uIU/mL [facility] Blood 08/30/2024 11:1 1 AM EDT 08/30/2024 11:20 AM EDT us Nuha Crowley MD LAB BLOOD ORDERABLES F inal Result Performing Organization Address [facility] Co de Phone Number [address] [phone] * 25-OH vitamin D (08/30/2024 11:11 AM EDT) 25 OH VIT D (TOTAL) 33 30 - 60 ng/mL [facility] Blood 08/30/2024 11:1 1 AM EDT 08/30/2024 11:20 AM EDT us Nuha Crowley MD LAB BLOOD ORDERABLES F inal Result Performing Organization Address [facility] Co de Phone Number [address] [address] * Thyroglobulin, Tumor Marker (08/30/2024 11:11 AM EDT) THYROGLOBULIN 0.2 < or = 33 ng/mL [facility] THYROGLOBULIN AB <1.8 <1.8 IU/mL [facility] THYROGLOBULIN INTRP SEE NOTE [facility] Comment: (NOTE) Thyroglobulin (Tg) reference intervals are for patients with an intact thyroid and not for patients who have had surgery for thyroid cancer. Tg reference intervals in patients that have undergone thyroidectomy or any treatment for follicular thyroid cancer are dependent on the residual mass of the thyroid tissue after surgery. Tg results, regardless of concentration, should not be interpreted as absolute evidence for the presence or absence of papillary or follicular thyroid cancer. This result needs to be interpreted in the context of the clinical evaluation. ADDITIONAL INFORMATION PLEASE NOTE: The given cutoff of <1.8 IU/mL is for the detection of potential thyroglobulin antibody (TgAb) interference in thyroglobulin immunoassays. A thyroglobulin antibody (TgAb) reference cutoff of <4.0 IU/mL may be more suitable for the evaluation of autoimmune thyroiditis. The thyroglobulin and thyroglobulin antibody testing methods are immunoenzymatic assays manufactured by [employer]. and performed on the [employer] DXI 800. Values obtained from different assay methods or kits may be different and cannot be used interchangeably. The results cannot be interpreted as absolute evidence for the presence or absence of malignant disease. Blood 08/30/2024 11:1 1 AM EDT 08/30/2024 11:19 AM EDT Nuha Crowley MD LAB BLOOD ORDERABLES F inal Result [facility] MED/PATH [address] [address] [place] [address] * Phosphorus (08/30/2024 11:11 AM EDT) PHOSPHORUS 3.5 2.7 - 4.5 mg/dL [facility] Blood 08/30/2024 11:1 1 AM EDT 08/30/2024 11:20 AM EDT Nuha Crowley MD LAB BLOOD ORDERABLES F inal Result [facility] [address] [place] [address] * Parathyroid hormone (PTH) (08/30/2024 11:11 AM EDT) PARATHYROID HORMONE 58 15 - 65 pg/mL [facility] Blood 08/30/2024 11:1 1 AM EDT 08/30/2024 11:20 AM EDT Nuha Crowley MD LAB BLOOD ORDERABLES F inal Result [address] [phone] from Last 3 Months Insurance MEDICARE PART A & B [employer] MEDICARE SUPPLEMENT MEDICARE PART A & B [employer] MEDICARE SUPPLEMENT MEDICARE PART A & B [facility] MEDICARE SUPPLEMENT MEDICARE PART A & B [employer] MEDICARE SUPPLEMENT MEDICARE PART A & B [employer] MEDICARE SUPPLEMENT MEDICARE PART A & B [employer] MEDICARE SUPPLEMENT Care Teams Pre Owned Sales Manager Relationship Specialty Start Date End Date Keaton Leigh MD [address] [place] [phone] PCP - General Internal Medicine 06/22/22 Additional Source Comments The information contained in this document represents components of the legal health record. It is not the complete legal health record.Formerly [facility]
--- NOTE | 2024-11-22 14:56 | CA_ITS ---
Transthoracic Echocardiogram Patient (Last, First, Middle): Tanesha Dejesus M Gender: F Date of : 1945 Age: 79 Procedure Date: 11/22/2024 Procedure Type: Transthoracic Echocardiogram Location: OP Height: 160.02 cm Weight: 65.77 kg BSA: 1.69 m2 Heart Rate: 53 bpm BP: 172 / 90 mmHg Breadman: FLORA/ART Referring MD: Santo Cortez MD Airplane Navigator: Santo Cortez MD Symptoms: R01.1 Cardiac Murmur, unspecified Study Quality: Adequate ECG Rhythm: Bradycardia Conclusions: - 1. Normal LV ejection fraction of 60 65% with grade 1 diastolic dysfunction 2. Mild calcific aortic valve changes noted with trace aortic regurgitation 3. Normal measured RV systolic pressure 4. No gross pericardial effusion Findings Left Ventricle Normal left ventricular size, thickness, and systolic function. The visually estimated ejection fraction is between 60-65%. Spectral Doppler is indicative of an impaired relaxation filling pattern. E/E prime ratio is <8, consistent with normal filling pressures. Evidence suggests grade I (mild) diastolic dysfunction. Right Ventricle Normal right ventricular cavity size and systolic function. Atria Both atria are normal in size. There is lipomatous hypertrophy of the interatrial septum. There is no evidence of interatrial shunt. Aortic Valve There is mild calcification of the aortic valve. There is no aortic valve stenosis. There is trace (trivial) aortic valve regurgitation. Mitral Valve There is mild anterior and posterior mitral leaflet thickening. There is trace mitral valve regurgitation. There is no mitral valve stenosis. Pulmonic Valve The pulmonic valve was not well visualized. Tricuspid Valve Likely normal tricuspid valve structure and function. There is trace tricuspid valve regurgitation. The right ventricular systolic pressure is normal. The right ventricular systolic pressure is 18 mmHg. Normal right atrial pressure. There is no evidence of pulmonary hypertension. Great Vessels All visible segments of the aorta are normal in size. The pulmonary artery was not well visualized. There is no dilatation of the ascending aorta measuring 3.30 cm. Venous The inferior vena cava is normal in size and collapses greater than 50% with inspiration. Pericardium/Pleural There is no evidence of pericardial effusion. Prior Study Comparison No prior study available for comparison. Measurements 2D Linear Measurements IVSd: 0.95 0.6-0.9/0.6-1.0 cm LVIDd: 4.53 3.9-5.3/4.2-5.9 cm LVIDd Index: 2.68 2.4-3.2/2.2-3.1 cm/m2 LVIDs: 2.42 2.0-3.6 cm LVPWd: 0.97 0.7-1.1 cm LA Diam: 3.40 2.7-3.8/3.0-4.0 cm LAIDs Index: 2.01 1.5-2.3 cm/m2 LV Mass: 182.39 67-162/88-224 g LV Mass Index: 107.92 43-95/49-115 g/m2 LVOT Diam: 1.90 3.0+(-)1.3 cm 2D Systolic Function EF 4C: 61.80 >55% EF 2C: 64.50 >55% EF BiP: 63.00 >55% Mitral Valve MV Pk E: 0.57 MV PK A: 0.82 MV Decel Time: 205.00 E/A: 0.70 E'Lateral: 8.05 E'Medial: 5.87 E/E' Med: 9.60 E/E' Lat: 7.00 PHT: 60.00 MVA PHT: 3.67 Decel [place]: 2.75 Aortic Valve AoV Pk Peter: 1.53 AoV Mn Peter: 0.94 AoV VTI: 0.36 AoV Pk Grad: 9.00 Aov Mn Grad: 4.00 CARMINE Cont.VTI: 1.96 LVOT LVOT Pk Peter: 0.96 LVOT Mn Peter: 0.66 LVOT VTI: 0.25 LVOT Pk Grad: 4.00 LVOT Mn Grad: 2.00 LVOT Diam: 1.90 LVOT Area: 2.84 Diastolic Function MV Pk E: 0.57 MV Pk A: 0.82 E/A: 0.70 E'Medial: 5.87 E/E' Med: 9.60 E' Laterial: 8.05 E/E' Lat: 7.00 Right Ventricle TAPSE (mm): 23.00 TVS' Peter: 8.27 Tricuspid Valve TR Pk Peter: 1.95 TR Pk Grad: 15.00 RA Press: 3.00 RVSP: 18.00 Great Vessels Aorta Sinus of Valsalva: 2.90 2.0-3.5 cm Ao Asc: 3.30 2.1-3.4 cm Pulmonary Veins Pulm Vein S/D 1.40 Pulmonary Valve PV Pk Peter: 0.75 Peak PV Grad: 2.00 Updated in Other Vendor System with Status of Final Santo Cortez MD electronically signed on 11/23/2024 5:07:43 PM with status of Final
== END ==
LOC: HO.CARD 14:49
PROVIDERS: PCP Internal Medicine; Visit Provider Internal Medicine Cardiovascular Disease
DX: R01.1 Cardiac murmur, unspecified (principal)
CPT/HCPCS: 93306

== ENCOUNTER → 2024-11-22 14:56 | Outpatient (BNV) | payer MEDICARE, OTHER, SELFPAY | PROVIDERS: PCP Internal Medicine; Visit Provider Internal Medicine Cardiovascular Disease | DX: I35.8 Other nonrheumatic aortic valve disorders (principal); R01.1 Cardiac murmur, unspecified; I51.89 Other ill-defined heart diseases | CPT/HCPCS: 93306 ==

== ENCOUNTER 2025-02-05 09:50 | Outpatient (AMB) | payer MEDICARE, OTHER, SELFPAY ==
[2025-02-05 09:52] VITALS: BP 106/62; PULSE 58; O2SAT 96; BMI 24.0
--- NOTE | 2025-02-05 09:52 | MHC.OFFVIS ---
Vital Signs 02/05/25 09:52 Height 5 ft 6 in Weight 148 lb 12.992 oz BMI 24.0 BP 106/62 Blood Pressure Location Lt brachial Position Sitting Pulse 58 Pulse Source Pulse Oximeter Pulse Oximetry (%) 96 Oxygen Delivery Method Room Air Intake Visit Reasons: COPD Communication Professor Required: No Accompanied by: Self / Same As Patient Allergies morphine Allergy (Severe, Verified 02/05/25 09:56) Vomiting Sulfa (Sulfonamide Antibiotics) Allergy (Severe, Verified 02/05/25 09:56) hives aspirin (ASA) Allergy (Intermediate, Verified 02/05/25 09:56) UPSET STOMACH Thimerosal Allergy (Severe, Uncoded 01/30/24 10:28) Vomiting HPI Comments Details: The patient is a 79 y/o woman with underlying pulmonary nodules. Apparently back in May 2019 she was having significant respiratory complaints including cough shortness of breath chest pain. Looking back she thinks she had COVID-19 infection. She did have a CT scan of the chest PE protocol which was negative for any airspace disease. But, did did mention that the right lower lobe pulmonary nodule was slightly increasing size measuring 8 x 10 mm. They recommended repeating the PET scan. She had a repeat CT scan October 16, 2019 demonstrating stability of the right lower lobe pulmonary nodule. We did go back to her previous CT scan even her last PET scan at [facility]. The CT scans in the PET scan personally reviewed by me. The patient to be some waxing waning from the size of the right lower lobe nodular density. It may be how was cut as it is not completely circumferential. That being said has not shown any significant change in size. Also the PET scan was reassuring with no FDG activity. The patient also has a small new pulmonary nodule that will continue to need follow-up. 11/24/2020 the patient is here for a pulmonary follow-up visit. She has been having significant issues lately. Time issues with a disc herniation that required surgical intervention but then she had every herniation and had to have repeat surgery. Now she has been with significant issues after having a hernia surgery done resulting significant constipation irregular bowels. The therefore she is struggling with F. Due to the significant constipation she developed hemorrhoids. She will be following up with her new surgeon regarding the internal hemorrhoids. Her breathing overall has been stable. We did review her recent CT scan of the chest which demonstrated multiple subsolid and ground-glass nodular densities. Patient understands that these nodules have to be monitor for longer period of time based on their description. At this point a CT scan stable will follow-up with a CT in next year unless she develops any worsening respiratory symptoms or any other concerning symptoms of warranted earlier evaluation. The patient is now requiring a respiratory medicines at this time. 11/25/2021 the patient is here for pulmonary follow-up visit. The patient has had a very eventful year. After I saw her back in November of 2020 the patient required surgery for fissures. Subsequently after that she was diagnosed with breast cancer during the pandemic. She did undergo a left breast mastectomy. They would into the right because of the pandemic could have elective surgery. She also had a lymph node dissection that was negative for any spread. She was placed on hormonal therapy but she cannot tolerated. After that the patient developed significant paresthesias and was found to have cervical disc disease. She did require neurosurgical intervention. She underwent surgery without any apparent complications. Now she is recovering from that. Overall she is doing well from a respiratory status. Denies any shortness of breath or cough. She did undergo a repeat CT scan of the chest. It appears that she has both ground-glass nodular densities in solid nodular densities. When compared to last year's the CT scan is stable which is reassuring. In view of the ground-glass nodules which she continue following the nodules further specially now with a history of breast cancer. She also was concerned about a little tag that she has on her right axilla. I did evaluate the CT scan of the chest and did not appear to have any significant lymphadenopathy in the right axilla. She does have a very so much subcutaneous Pea size density which appears to be more worse base uses. If the patient's sees that increase or get more indurated patient is to follow-up with her primary care for her oncologist quickly. She is scheduled to have a mammography sometime in the late fall. 12/01/2022 the the patient is here for pulmonary follow-up visit. Overall the patient is well. Since we last spoke she was diagnosed with recurrent breast cancer and required a mastectomy. She has not on any hormonal or chemotherapy. She is using natural medicine. Respiratory umanzor she is doing well she continues to exercise regularly. She finally recovered from her surgery so she is getting some her energy back. The patient did have a CT scan of the chest in October 2022 and we personally reviewed the CT scan and compared to the CT scan she had from 2021. She does have intermediate sized pulmonary nodules some calcified and some noncalcified. There unchanged for the most part when compared to 2021 although the 1 on the left appears to be just a little bit more opaque although same size. Patient will require repeat CT scan in a year's time. 01/30/2024 the patient is here for a pulmonary follow-up visit. Overall the patient is doing well. Her respiratory symptoms have been stable. She is recovering from shoulder surgery. Denies any worsening shortness of breath or chest tightness. She does have epigastric discomfort and she does get some reflux symptoms. We did look at her CT scan of the chest demonstrating the hiatal hernia. We did talk about her . She can not take a lot of medications at this time although I do believe Pepcid will be okay based on her medical issues. She is having a lot of reflux symptoms and she should take her medications specially since she is following a reflux diet. As far as changes in her diet she is going to stop the seltzer water and just have regular water instead. Hopefully the Pepcid helps her symptoms. We did review her pulmonary nodules. They appear to be stable when compared to last year. There still about a cm in size which are intermediate and she does have the reason history of breast cancer. Will follow-up with a repeat CT scan in a year's time. If the patient develops any worsening symptoms prior to that she will call for an earlier assessment. 02/05/2025 the patient is here for pulmonary follow-up visit. Overall she is doing good from a respiratory status. Denies any shortness of breath cough or wheezing. She did have worsening reflux symptoms when she stopped the Pepcid and she is going to restarted. She does have a hiatal hernia. We did talk about the reflux diet making sure that she sleeps elevated. The meantime the patient did undergo a CT scan of the chest at [facility]. I did personally reviewed. It appears she has a slightly greater than a cm pulmonary nodule in the right lower lobe along with the other nodules. They are stable in size although irregular in shape. Therefore will continue to follow these abnormal nodules. Hopefully we can do a CAT scan in about 18 months. If the patient develops any worsening symptoms prior to that she can always call for an earlier assessment. [facility] Medical History Hiatal hernia Constipation Hand paresthesia Pulmonary nodules Pulmonary nodule Hyperlipidemia Vasovagal syncope Surgical History H/O breast surgery Family History Father Stroke Mother No problems noted. Social History Patient Tobacco Use Status: Never used Tobacco Review of Systems Const Denies night sweats ENT Denies change in voice, Denies lip swelling, Denies mouth pain, Reports nasal congestion, Reports nasal discharge, Reports neck pain and Denies tongue swelling Card Denies chest pain Resp Denies cough GI Reports change in stool character and Reports constipation Musc Denies no additional complaints, Reports back pain, Reports neck pain, Reports numbness and Reports tingling Neuro Denies Neuro-related abnormal movements, Reports numbness, Reports tingling and Reports paresthesias Psych Denies no additional complaints Alan/Lymph Denies easy bleeding and Denies lymphadenopathy Aller/Immun Denies lip swelling and Denies tongue swelling Physical Exam Vital Signs: Last Vital Signs Pulse 58 02/05/25 09:52 BP 106/62 02/05/25 09:52 Pulse Ox 96 02/05/25 09:52 Oxygen Delivery Method Room Air 02/05/25 09:52 BMI result Body Mass Index 24.0 Const General: alert Neck Neck: Yes normal visual inspection, Yes full ROM and Yes no lymphadenopathy Chest Chest palpation & inspection: normal inspection of the chest Resp Effort & Inspection: normal respiratory effort Auscultation: diminished lung sounds Cardio Rate: regular rate Rhythm: regular rhythm Heart sounds: S1 normal heart sound present and S2 normal heart sound present GI Palpation (GI): Soft to palpation and nontender Auscultation: normal bowel sounds Skin General skin exam: rashes and/or lesions noted Extrem General: Yes no clubbing, cyanosis or edema Assessment & Plan Assessment & Plan (1) Pulmonary nodules: Code(s): R91.8 - Other nonspecific abnormal finding of lung field Category: Medical (2) Hiatal hernia: Comment: noted on CT Code(s): K44.9 - Diaphragmatic hernia without obstruction or gangrene Category: Medical Plan Repeat CT chest 12-18 months reflux diet sleep elevated restart Pepcid should f/u with GI F/U 1 yr Medications: New famotidine (Pepcid) 40 mg PO BEDTIME 30 tabs 9RF 30 days Coding Level of Care Code Est Pt Level 4 (64002) Complex EM visit Add On G2211 Diagnoses Pulmonary nodules R91.8 Hiatal hernia K44.9 Time Spent (min) 17
--- OUTSIDE RECORDS SUMMARY | 2025-02-05 11:18 | XMS_ITS | Clinical Summary ---
Author Organization [facility] Address [address] [place] [address] Care Team Providers Care Digital Marketing Coordinator Name Role Phone Keaton Leigh MD Primary Care Provider + [phone] Social History Tobacco Use Types Packs/Day Years [...] age to complete this topic Care Teams Digital Marketing Coordinator Relationship Specialty Start Date End Date Keaton Leigh MD [address] [address] PCP - General Internal Medicine 02/04/20
--- OUTSIDE RECORDS SUMMARY | 2025-02-05 11:18 | XMS_ITS | Clinical Summary ---
Author Organization [facility] Address [address] [place] [address] Care Team Providers Care Tubing Assembler Name Role Phone Keaton Leigh MD Primary Care Provider Social History Tobacco Use Types Packs/Day Years Used Date Smoking Tobacco: Never Assessed Comments Unknown Sex and Gender Information Value Date Recorded Sex Assigned at Not on file Legal Sex Female 3:56 PM EST Gender Identity Not on file Sexual Orientation Not on file Plan of Treatment Health Maintenance Due Date Last Done Comments Advance Care Planning 1945 Hepatitis C Virus Screening 1945 DTaP/Tdap/Td Vaccines (1 - Tdap) 1965 Pneumococcal Vaccines 50+ (1 of 1 - PCV) 1996 Zoster (Shingles) Vaccine (1 of 2) 1996 DXA Bone Density (Females,Ag es 65 and older) 08/07/2011 RSV Vaccine 50 years and old er and Patients (1 - 1-dose 75+ series) 2021 Influenza Vaccine 11/02/2024 COVID-19 Vaccine ( - 2023-2 5 season) 2024 Hepatitis B Vaccines Aged Out No long er eligible based on patient's age to complete this topic Insurance MEDICARE PART A & B Care Teams Tubing Assembler Relationship Specialty Start Date End Date Keaton Leigh MD PCP - General Internal Medicine 03/14/17
--- OUTSIDE RECORDS SUMMARY | 2025-02-05 11:18 | XMS_ITS | Clinical Summary ---
Author Organization [facility] Address [address] [place] [phone] Phone Care Team Providers Care Paper Cap Machine Operator Name Role Phone Keaton Leigh MD Primary Care Provider + [phone] Allergies Active Allergy Reactions Criticality Noted Date [...] had prescribed alendronate at last visit @ [facility]. She did not start d/t intervening dx [...] Pulmonary nodule Migraine Vasovagal syncope Breast cancer Social History Tobacco Use Types Packs/Day Years [...] Description 03/26/2025 11:20 AM EST Office Visit [facility] Endocrinology [address] [place] [phone] Nuha Crowley MD [address] [place] [address] [phone] [email or web address] Health Maintenance Due Date Last Done Comments Adult Td,Tdap Booster 1945 LIPID PANEL 1945 DEPRESSION SCREENING 1958 HEPATITIS C SCREENING 1964 PNEUMOCOCCAL VACCINES (50+ years) (1 of 2 - PCV) 1965 ZOSTER VACCINES (1 of 2) 1965 RSV VACCINE (1 - 1-dose 75+ series) 2021 INFLUENZA VACCINE (#1) 2024 COVID-19 VACCINE ( - season) 2024 01/17/2021, 07/18/2020, 06/27/2020 BLOOD PRESSURE 03/08/2025 09/06/2024 TSH LEVEL 08/30/2025 08/30/2024, 10/0 04/2023, 07/25/2023, Additional history exists SMOKING STATUS SCREENING [...] Procedure Name Priority Date/Time Associated Diagnosis Comments TSH WITH REFLEX Routine 08/30/2024 11:11 AM EDT Malignant neoplasm of thyroid gland BD DXA MONITORING Routine 02/02/2024 1:5 4 PM EDT Age-related osteoporosis without current pathological fracture from Last 3 Months or Most Recently Relevant to Health Maintenance Results * TSH with reflex (08/30/2024 11:11 AM EDT) TSH 1.19 0.27 - 4.20 uIU/mL [facility] Blood 08/30/2024 11:1 1 AM EDT 08/30/2024 11:20 AM EDT us Nuha Crowley MD LAB BLOOD BKR ORDERABL ES Final Result [address] [id number] from Last 3 Months or Most Recently Relevant to Health Maintenance Insurance MEDICARE PART A & [place] [id number] [employer] MEDICARE SUPPLEMENT MEDICARE PART A & B MEDICARE SUPPLEMENT MEDICARE PART A & B [facility] MEDICARE SUPPLEMENT MEDICARE PART A & B [employer] MEDICARE SUPPLEMENT MEDICARE PART A & B [facility] MEDICARE SUPPLEMENT MEDICARE PART A & B [facility] MEDICARE SUPPLEMENT Care Teams Paper Cap Machine Operator Relationship Specialty Start Date End Date Keaton Leigh MD [address] [place] [address] PCP - General Internal Medicine 06/22/22 Additional Source Comments The information contained in this document represents components of the legal health record. It is not the complete legal health record[facility]
--- OUTSIDE RECORDS SUMMARY | 2025-02-05 11:18 | XMS_ITS | Clinical Summary ---
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 Name Role Phone Keaton Leigh MD Primary Care Provider + [phone] Allergies Active Allergy Reactions Criticality Noted Date Comments Adhesive 11/23/2024 Other Reaction(s): [id number] sensitivity Latex Hives 11/23/2024 Pt states she has not had a reaction in a long time but has historically become itchy Milk Containing Products (Dairy) Congestion of the throat 11/23/2024 Other Reaction(s): upset stomach, face swells Morphine Nausea And Vomiting 06/03/2020 Oxycodone Nausea And Vomiting 06/03/2020 Sulfa (Sulfonamide Antibiotics) Rash 02/13/2018 Vancomycin 02/13/2018 Medications MAGNESIUM HYDROXIDE ORAL Take by mouth. Active levothyroxine (SYNTHROID, LEVOTHROID) 100 mcg tablet Take 100 mcg by mouth daily. Active diindolylmethane, bulk, 100 % powder 100 mg by Does not apply route 2 times daily. Active HYDROmorphone (DILAUDID) 2 mg tablet Take 1 tablet (2 mg total) by mouth every 6 (six) hours if needed. 2 Active acetaminophen 500 mg powder in packet Take by mouth. Active atenoloL (TENORMIN) 25 mg tablet Take 25 mg by mouth daily. Active linaCLOtide (LINZESS) 145 mcg capsule Take 145 mcg by mouth daily. Active dehydroepiandrost erone (DHEA) 25 mg tablet Take by mouth. [...] (VITAMIN D2 ORAL) Take by mouth. Active celecoxib (CeleBREX) 200 mg capsule Take 1 capsule (200 mg total) by mouth 1 (one) time each day. Active gabapentin (NEURONTIN) 100 mg capsule Take 1 capsule (100 mg total) by mouth. 4 Active gabapentin (NEURONTIN) 300 mg capsule Take 1 capsule (300 mg total) by mouth. 3 Active qprrlhiuwxd-[id number]-th aluronic acid 1,000 mg- 25 mcg-1.65 mg tablet Take 3,000 mg by mouth. 2 Active lutein 40 mg capsule Take by mouth daily. Active plecanatide (Trulance) 3 mg tabletIndications :Irritable bowel syndrome with constipation,Bloa ting Take 1 tablet (3 mg total) by mouth 1 (one) time each day. 90 each 3 5 11/27/19 26 Active lubiprostone (AMITIZA) 24 mcg capsuleIndication s:Irritable bowel syndrome with constipation Take 1 capsule (24 mcg total) by mouth 2 (two) times a day with meals. 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 Renin/ethan showed no evidence of hyperaldosteronism. Nl 24 hr UFC. Nl LDDST. 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 On alendronate x years. 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 Essential hypertension 04/04/2021 Recurrent incisional hernia 06/20/2020 Hiatal hernia 02/13/2018 Pneumonitis 02/13/2018 Pulmonary nodule 02/13/2018 Encounters Date Type Department Care Team Description 12/27/2024 Telephone Gastroenterology - [address] [phone] Ana Mendoza PA 12/26/2024 7:35 AM EDT Lab Draw Station - [address] [address] Abdominal distension; Irritable bowel syndrome with constipation 12/26/2024 7:29 AM EDT - 12/26/2024 11:59 PM EDT Hospital Encounter [facility] CT Scan [address] [place] [address] Bloating; Generalized abdominal pain Discharge Disposition: Home or Self Care 12/14/2024 Telephone Gastroenterology - [address] [address] Britta Charles [place] 11/27/2024 Telephone Gastroenterology - [address] [phone] Ana Mendoza PA 11/23/2024 2:50 PM EDT - 11/23/2024 11:59 PM EDT Hospital Encounter [facility] Xray [address] [place] [phone] Bloating Discharge Disposition: Home or Self Care 11/23/2024 2:10 PM EDT Office Visit Gastroenterology - [address] [place] [address] Ana Mendoza PA Irritable bowel syndrome with constipation (Primary Dx); Bloating from Last 3 Months Surgical History Surgery Date Site/Laterality Comments OTHER SURGICAL HISTORY 03/1975 PROCEDURE: REPAIR FEMORAL HERNIA OTHER SURGICAL HISTORY 04/1976 PROCEDURE: [facility] ANES HRNA RPR UPR ABD LMBR&VNT HERNIA&/DEHSN HEMORRHOID SURGERY 11/1981 PROCEDURE: [facility] INCISION THROMBOSED HEMORRHOID EXTERNAL ABDOMINAL SURGERY 11/2009 PROCEDURE: [facility] UNLISTED PROCEDURE ABDOMEN PERITONEUM & OMENTUM; COMMENT: Exploratory laparotomy, lysis of adhesions, low anterior resection with suture rectopexy and proctosigmoidoscopy - by Mihir Andino MD at [facility] OTHER SURGICAL HISTORY 02/2010 PROCEDURE: ---- OTHER ----; COMMENT: Excision of abdominal wall encompassing scar and granuloma with fascial reapproximation and revision of abdominal wall scar - by Mihir Andino MD at [facility] ABDOMINAL SURGERY 05/2010 PROCEDURE: [place] UNLISTED PROCEDURE ABDOMEN PERITONEUM & OMENTUM; COMMENT: Exploratory laparotomy with hernia sac excision and dual mesh repair of large recurrent incisional hernia and panniculectomy - by Concepcion Rudolph MD at [facility] OTHER SURGICAL HISTORY 01/2009 PROCEDURE: ---- OTHER ----; COMMENT: Posterior colporrhaphy and perineorrhaphy - by Nettie Sanders MD at [facility] OTHER SURGICAL HISTORY 10/1975 PROCEDURE: REPAIR FEMORAL HERNIA HEMORRHOID SURGERY 10/2008 PROCEDURE: [facility] INCISION THROMBOSED HEMORRHOID EXTERNAL; COMMENT: hemorrhoidectomy - by Mihir Andino MD at [facility] THYROIDECTOMY PROCEDURE: HISTORICAL TOTAL THYROIDECTOMY; COMMENT: total thyroidectomy and parathyroidectomy OTHER SURGICAL HISTORY PROCEDURE: HISTORICAL PARTIAL BILATERAL MASTECTOMY SHOULDER SURGERY Bilateral PROCEDURE: HISTORICAL SHOULDER SURGERY OTHER SURGICAL HISTORY 04/08/2020 PROCEDURE: ---- OTHER ----; COMMENT: C4-5 anterior cervical discectomy, fusion, and plating - by Dr. Lizeth Sierra at [facility] VENTRAL HERNIA REPAIR 07/28/2020 Right PROCEDURE: HISTORICAL VTRL WALL HERNIA RE; COMMENT: Dr. Mike Rocha OTHER SURGICAL HISTORY 07/27/2021 Left PROCEDURE: ---- OTHER ----; COMMENT: total mastectomy COLONOSCOPY 09/02/2022 - 10/01/2022 HP x1, left sided tics, healthy anastomosis sig, rhoids (5yr/fam hx) Dr. Urias Medical History Medical History Date Comments Anal fissure 12/05/2020 DX:Anal fissure Family History Medical History Relation Name Comments Brain cancer Mother Breast cancer Sister 1 lung/renal cancer Sister 2 Relation Name Status Comments Mother Sister 1 Sister 2 Social History Tobacco Use Types Packs/Day Years Used Date Smoking Tobacco: Never Smokeless Tobacco: Never Alcohol Use Standard Drinks/Week Comments No 0 (1 standard drink = 0.6 oz pur e alcohol) Comments Unknown Sex and Gender Information Value Date Recorded Sex Assigned at Female 12/10/2024 4:01 PM EDT Legal Sex Female 1:05 AM EST Gender Identity Not on file Sexual Orientation Not on file Obstetrics History Last Filed Vital Signs Vital Sign Reading Time Taken Comments Blood Pressure 171/80 03/09/2022 9:27 AM EST Pulse 55 03/09/2022 9:27 AM EST Temperature - - Respiratory Rate - - Oxygen Saturation - - Inhaled Oxygen Concentration - - Weight 68.5 kg (151 lb) 11/23/2024 1:55 PM EDT Height 160 cm (5' 3 ) 11/23/2024 1:55 PM EDT Body Mass Index 26.75 11/23/2024 1:55 PM EDT Plan of Treatment Health Maintenance Due Date Last Done Comments DTaP,Tdap,and Td Vaccines (1 - Tdap) 1964 Cholesterol Screening (Lipid Panel) 03/07/2022 Falls Risk Assessment 03/07/2022 Hepatitis C Screening 03/07/2022 Medicare Annual Wellness Visit 03/07/2022 Social Influencers of Health Screening 03/07/2022 Depression Screening 04/04/2024 COVID-19 Vaccine (7 - Pfizer risk 2023- season) 2024 02/02/2024, 03/09/2023, 04/06/2022, Additional history exists Influenza Vaccine (#1) 2024 02/02/2024, 2022 Hypertension/CHF/CAD Annual BMP Blood Test 12/26/2025 12/26/2024, 08/30/2024, 07/25/2023, Additional history exists Osteoporosis Screening (Bone Density Screening) 02/19/2034 02/20/2024, 12/14/2021, 02/23/2019 RSV Immunization Adult Patients Completed 03/09/2023 Pneumococcal Vaccine: 50+ Years Completed 03/12/2024 Zoster Vaccines Completed 08/17/2024, 03/12/2024 Colorectal Cancer Screening: Colonoscopy Discontinued 11/22/2024 HIB Vaccines Aged Out No longer eligi [...] Procedure Name Priority Date/Time Associated Diagnosis Comments CT ABDOMEN PELVIS W CONTRAST Routine 12/26/2024 8:55 AM EDT Bloating Generalized abdominal pain COMPREHENSIVE METABOLIC PANEL STAT 12/26/2024 7:51 AM EDT Abdominal distension Irritable bowel syndrome with constipation XR ABDOMEN 1 VIEW Routine 11/23/2024 3:2 2 PM EDT Bloating COLONOSCOPY Routine 11/22/2024 1:23 PM EDT BD BONE DENSITY DXA AXIAL SKELETON Routine 02/20/2024 1:17 PM EST Age-related osteoporosis without current pathological fracture from Last 3 Months or Most Recently Relevant to Health Maintenance Results * CT Abdomen Pelvis w Contrast (12/26/2024 8:55 AM EDT) Anatomical Region Laterality Modality Body Computed Tomogra phy 12/26/2024 1:44 PM EDT Impressions 12/26/2024 1:59 PM EDT 1. No acute findings in the abdomen or pelvis. No evidence of diverticulitis. 2. Prominent stool burden throughout the colon. -------- FINAL REPORT -------- Dictated By: Chelsea Cano Dictated Date: 12/26/2024 13:44 ET Assigned Physician: Chelsea Cano Reviewed and Electronically Signed By: Chelsea Cano Signed Date: 12/26/2024 13:59 ET Workstation ID: [id number] Transcribed By: Self Edit Transcribed Date: 12/26/2024 13:44 ET Narrative 12/26/2024 1:59 PM EDT PROCEDURE: CT ABDOMEN/PELVIS WITH CONTRAST INDICATION: Abdominal distension Diverticulitis suspected TECHNIQUE: CT of the abdomen and pelvis following the intravenous administration of 90cc Isovue 370. Multiplanar reformats. The examination was performed utilizing dose reduction techniques. Total DLP 844 COMPARISON: No priors available. FINDINGS: LOWER THORAX: Lung bases are clear. HEPATOBILIARY: Hemangioma in segment 4. No suspicious liver lesion. Cholecystectomy. SPLEEN: No focal lesion. PANCREAS: No focal mass or ductal dilatation. ADRENALS: No nodules. 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 PELVIC ORGANS/BLADDER: Hysterectomy. PERITONEUM / RETROPERITONEUM: No ascites or free air. No retroperitoneal lymphadenopathy. VESSELS: Scattered atherosclerotic calcifications throughout the aorta and its major branches. No aneurysm. GI TRACT: The stomach presumably related to underdistention. There is prominent stool burden throughout the colon. Partial sigmoidectomy with anastomosis which is patent. There is wall thickening of the rectum which is presumably related to underdistention. BONES AND SOFT TISSUES: Scattered degenerative changes seen throughout the bones. Osteopenia. Soft tissues are unremarkable. Ventral hernia repair. Procedure Note Chelsea Cano MD - 12/26/2024 PROCEDURE: CT ABDOMEN/PELVIS WITH CONTRAST INDICATION: Abdominal distension Diverticulitis suspected TECHNIQUE: CT of the abdomen and pelvis following the intravenousadministration of 90cc Isovue 370. Multiplanar reformats. The examinationwas performed utilizing dose reduction techniques. Total DLP 844 COMPARISON: No priors available. FINDINGS: LOWER THORAX: Lung bases are clear. HEPATOBILIARY: Hemangioma in segment 4. No suspicious liver lesion.Cholecystectomy. SPLEEN: No focal lesion. PANCREAS: No focal mass or ductal dilatation. ADRENALS: No nodules. 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 PELVIC ORGANS/BLADDER: Hysterectomy. PERITONEUM / RETROPERITONEUM: No ascites or free air. No retroperitoneallymphadenopathy. VESSELS: Scattered atherosclerotic calcifications throughout the aorta andits major branches. No aneurysm. GI TRACT: The stomach presumably related to underdistention. There isprominent stool burden throughout the colon. Partial sigmoidectomy withanastomosis which is patent. There is wall thickening of the rectum whichis presumably related to underdistention. BONES AND SOFT TISSUES: Scattered degenerative changes seen throughout thebones. Osteopenia. Soft tissues are unremarkable. Ventral herniarepair. IMPRESSION: 1. No acute findings in the abdomen or pelvis. No evidence ofdiverticulitis. 2. Prominent stool burden throughout the colon. -------- FINAL REPORT -------- Dictated By: Chelsea Cano Dictated Date: 12/26/2024 13:44 ET Assigned Physician: Chelsea Cano Reviewed and Electronically Signed By: Chelsea Cano Signed Date: 12/26/2024 13:59 ET Workstation ID: [id number] Transcribed By: Self Edit Transcribed Date: 12/26/2024 13:44 ET Ana QUEVEDO IMG CT PROCEDURES Final Resu lt * Comprehensive metabolic panel (12/26/2024 7:51 AM EDT) Sodium 140 133 - 145 mmol/L LAB CHEMISTRY METHOD 12/26/2024 8:38 AM EDT [facility] Potassium 4.4 3.5 - 5.5 mmol/L LAB CHEMISTRY METHOD 12/26/2024 8:38 AM EDT [facility] Chloride 106 96 - 110 mmol/L LAB CHEMISTRY METHOD 12/26/2024 8:38 AM EDT [facility] CO2 29 21 - 32 mmol/L LAB CHEMISTRY METHOD 12/26/2024 8:38 AM [facility] Anion Gap 5 3 - 11 LAB CHEMISTRY METHOD 12/26/2024 8:38 AM [facility] Glucose 86 70 - 100 mg/dL LAB CHEMISTRY METHOD 12/26/2024 8:38 AM [facility] BUN 15 5 - 25 mg/dL LAB CHEMISTRY METHOD 12/26/2024 8:38 AM [facility] Creatinine 0.89 0.50 - 1.10 mg/dL LAB CHEMISTRY METHOD 12/26/2024 8:38 AM [facility] eGFR 66 >=60 mL/min/1. 73m2 LAB CHEMISTRY METHOD 12/26/2024 8:38 AM [facility] Comment:Calculation based on the Chronic Kidney Disease Epidemiology Collaboration (CKD-EPI) equation refit without adjustment for race. BUN/Creatinine Ratio 16.9 LAB CHEMISTRY METHOD 12/26/2024 8:38 AM [facility] Calcium 10.2 8.5 - 10.5 mg/dL LAB CHEMISTRY METHOD 12/26/2024 8:38 AM [facility] AST (SGOT) 13 10 - 42 unit/L LAB CHEMISTRY METHOD 12/26/2024 8:38 AM [facility] ALT (SGPT) 15 10 - 60 unit/L LAB CHEMISTRY METHOD 12/26/2024 8:38 AM [facility] Alkaline Phosphatase 63 42 - 121 unit/L LAB CHEMISTRY METHOD 12/26/2024 8:38 AM [facility] Total Protein 7.6 6.0 - 8.0 g/dL LAB CHEMISTRY METHOD 12/26/2024 8:38 AM [facility] Albumin 3.9 3.2 - 5.0 g/dL LAB CHEMISTRY METHOD 12/26/2024 8:38 AM [facility] Total Bilirubin 0.4 0.0 - 1.4 mg/dL LAB CHEMISTRY METHOD 12/26/2024 8:38 AM EDT [facility] Blood Venous blood specimen / Unknown Venipuncture / Unknown 12/26/2024 7:51 AM EDT 12/26/2024 8:03 AM EDT us Migdalia Urias MD LAB BLOOD ORDERABLES Final Res ult [facility] [address] [place] [address], [place] [phone] * XR Abdomen 1 View (11/23/2024 3:22 PM EDT) Anatomical Region Laterality Modality Body Radiographic Margie ging 11/26/2024 8:09 AM EDT Impressions 11/26/2024 8:11 AM EDT Nonobstructive bowel gas pattern. There is evidence of moderate constipation, similar in appearance to that seen on 08/26/2021. Postoperative changes in the abdomen and pelvis are again noted. Code 56484 -------- FINAL REPORT -------- Dictated By: Hi Menjivar Dictated Date: 11/26/2024 08:09 ET Assigned Physician: Hi Menjivar Reviewed and Electronically Signed By: Hi Menjivar Signed Date: 11/26/2024 08:11 ET Workstation ID: [id number] Transcribed By: Self Edit Transcribed Date: 11/26/2024 08:09 ET Narrative 11/26/2024 8:11 AM EDT HISTORY: The patient is a 79-year-old female with constipation. FINDINGS: Supine radiographs of the abdomen again demonstrate hernia repair mesh in the upper abdomen and pelvis as also seen on the prior study performed 08/26/2021. Cholecystectomy clips are also again noted, as well as surgical clips and sutures in the pelvis. Again seen are mild degenerative changes of the lumbar spine. The bowel gas pattern is nonobstructive. A moderate amount of fecal material is again present throughout the colon from the cecum to the rectum consistent with moderate constipation, similar in appearance to the prior study. No mass or radiopaque calculus is seen. Procedure Note Hi Menjivar MD - 11/26/2024 HISTORY: The patient is a 79-year-old female with constipation. FINDINGS: Supine radiographs of the abdomen again demonstrate herniarepair mesh in the upper abdomen and pelvis as also seen on the priorstudy performed 08/26/2021. Cholecystectomy clips are also again noted, aswell as surgical clips and sutures in the pelvis. Again seen are milddegenerative changes of the lumbar spine. The bowel gas pattern isnonobstructive. A moderate amount of fecal material is again presentthroughout the colon from the cecum to the rectum consistent with moderateconstipation, similar in appearance to the prior study. No mass orradiopaque calculus is seen. IMPRESSION: Nonobstructive bowel gas pattern. There is evidence of moderateconstipation, similar in appearance to that seen on 08/26/2021.Postoperative changes in the abdomen and pelvis are again noted. Code 60631 -------- FINAL REPORT -------- Dictated By: Hi Menjivar Dictated Date: 11/26/2024 08:09 ET Assigned Physician: Hi Menjivar Reviewed and Electronically Signed By: Hi Menjivar Signed Date: 11/26/2024 08:11 ET Workstation ID: [id number] Transcribed By: Self Edit Transcribed Date: 11/26/2024 08:09 ET Ana QUEVEDO IMG XR PROCEDURES Final Resu lt * COLONOSCOPY (11/22/2024 1:23 PM EDT) Anatomical Region Laterality Modality Endoscopy Historical Provider GI~PROCEDURE ORDERABLES F inal Result * BD Bone Density DXA Axial Skeleton (02/20/2024 1:17 PM EST) Anatomical Region Laterality Modality Wrist, Hip, L-spine Bone Densito metry 02/20/2024 1:47 PM EST Impressions 02/20/2024 1:48 PM EST Osteoporosis. [id number] -------- FINAL REPORT -------- Dictated By: Madonna Mckinley Dictated Date: 02/20/2024 13:47 ET Assigned Physician: Madonna Mckinley Reviewed and Electronically Signed By: Madonna Mckinley Signed Date: 02/20/2024 13:48 ET Workstation ID: [id number] Transcribed By: Self Edit Transcribed Date: 02/20/2024 13:47 ET Narrative 02/20/2024 1:48 PM EST History: Low estrogen state due to menopause. Personal history of fracture. Comparison: 12/14/21 Findings: Bone densitometry is performed utilizing dual energy x-ray absorptiometry (DXA) in the [employer] unit. The lumbar spine and proximal femora [...] utilizing dual energy x-ray absorptiometry(DXA) in the [employer] unit. The lumbar spine and proximal [...] Osteoporotic 24.3percent Hip 7.2 percent. IMPRESSION: Osteoporosis. 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
== END 2025-02-05 10:21 | disposition home or self-care (01) ==
LOC: HO.HPS 09:50
PROVIDERS: PCP Internal Medicine; Visit Provider Hospitalist
DX: R91.8 Other nonspecific abnormal finding of lung field (principal); K44.9 Diaphragmatic hernia without obstruction or gangrene
CPT/HCPCS: 99214; G2211

== ENCOUNTER → 2025-02-05 09:50 | Outpatient (BNVA) | payer MEDICARE, OTHER, SELFPAY | PROVIDERS: PCP Internal Medicine; Visit Provider Hospitalist | DX: K44.9 Diaphragmatic hernia without obstruction or gangrene (principal); R91.8 Other nonspecific abnormal finding of lung field | CPT/HCPCS: 99212 ==